=== PATIENT | female | born 1955 | race Caucasian/White ===

== ENCOUNTER 2017-03-12 06:23 | Inpatient (IN) ==
--- NOTE | 2017-03-12 06:58 | Emergency Department Note ---
START Narrative - START START: 61-year-old female presents to the emergency department with concerns of elevated blood pressure. Patient states that this happened multiple times in the past when her renal stents have started to thrombose. Patient states her normal blood pressures around 150 systolic, she is noted and elevated throughout the night. She has taken extra doses of her BP medications which include clonidine, Cozaar, hydralazine without improvement of her blood pressure. Patient now complains of mild chest pressure and blurred vision however she denies weakness in her upper or lower extremities different from her baseline. At the end of my shift patient is pending laboratory evaluation, x-ray, reevaluation and disposition. Patient care will be transferred to Dr. Perez for further care and evaluation.
[2017-03-12 07:02] LABS: Calcium 9.6 mg/dL (8.6-10.8); Potassium 3.6 mEq/L (3.5-4.5)
[2017-03-12 07:20] LABS: Bilirubin,Urine Negative (Negative); Blood,Urine Negative (Negative); Clarity,Urine Clear (Clear); Color,Urine Yellow (Yellow); Glucose,Urine (UA) Normal (Normal); Ketones,Urine Negative (Negative); Leukocyte Esterase,Urine Negative (Negative); Nitrite,Urine Negative (Negative); PH,Urine 6.5 pH Units (5.0-8.0); Protein,Urine Negative (Neg-Trace); Specific Gravity,Urine 1.007 (1.010-1.025); Urobilinogen,Urine Normal (Normal)
--- NOTE | 2017-03-12 07:26 | Emergency Department Note ---
Disposition Clinical Impression: Accelerated essential hypertension CKD (chronic kidney disease) Qualifiers: Chronic kidney disease stage: unspecified stage Qualified Code(s): N18.9 - Chronic kidney disease, unspecified Disposition: Admitted As Inpatient Condition: Fair Time of Disposition: 10:50 General Adult HPI - General Chief complaint: ED Chest Pain Stated complaint: high BP Time Seen by Provider: 03/12/17 07:13 Source: patient Limitations: no limitations Nursing Notes Reviewed: Yes Vital Signs Reviewed: Yes - History of Present Illness HPI Narrative: Mrs. Gambino, a 61-year-old female, presents from home for evaluation of hypertension. Overnight, patient's blood pressure continued to steadily rise. Now associated with headache, blurry vision, intermittent chest heaviness. Patient she was also having intermittent symptoms consistent with her trigeminy and bigeminy. She has a history of bilateral renal stents followed by Dr. Nassar. 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 Corado. Overnight, patient was taking one of her BP meds every 3 hours, cycling through clonidine, Cozaar, and hydralazine; BP did not come down at home. She has been compliant with regular self dosing of her clonidine, Cozaar , hydralazine. Her blood pressure continued to rise despite this. Patient notes that this happened previously when she had a thrombosed stent in her symptoms are very similar. She notes that approximately every 6 months she has her right renal stent, "Roto -Rootered" and this was not done in September as it was not yet severe enough. Antiplatelet: Aspirin 81, Plavix. 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 ROS: Positive: As above nausea Negative: Fever, chills, vomiting, abdominal pains, constipation, dysuria Pain Scale: 5 - Related Data Home Medications Medication Instructions Recorded Confirmed Albuterol Sulfate [Albuterol 2 puff IH Q4HR PRN 02/15/15 03/12/17 Inhaler] Atorvastatin [Lipitor] 40 mg PO HS 02/15/15 03/12/17 Clopidogrel [Plavix] 75 mg PO HS 02/15/15 03/12/17 Ipratropium/Albuterol Neb [Duoneb] 3 ml IH Q6HR PRN 02/15/15 03/12/17 Levothyroxine [Synthroid] 75 mcg PO DAILY 02/15/15 03/12/17 SUMAtriptan [Imitrex] 50 mg PO Q2H PRN 02/15/15 03/12/17 TraZODone 200 mg PO HS 02/15/15 03/12/17 diazePAM [Valium] 5 mg PO HS 02/15/15 03/12/17 Carvedilol [Coreg] 25 mg PO DAILY 05/09/16 03/12/17 Cetirizine HCl [Zyrtec] 10 mg PO DAILY 05/09/16 03/12/17 Cholecalciferol (Vitamin D3) 1,000 unit PO DAILY 05/09/16 03/12/17 [Vitamin D3] CloNIDine HCl [Kapvay] 0.2 mg PO TID 05/09/16 03/12/17 Oxybutynin Chloride [Ditropan Xl] 10 mg PO DAILY 05/09/16 03/12/17 Desvenlafaxine Succinate [Pristiq] 50 mg PO DAILY 12/10/16 03/12/17 Hydralazine HCl 50 mg PO TID 12/10/16 03/12/17 Ipratropium [place] 2 spr NS BID 12/10/16 03/12/17 Montelukast [Singulair] 10 mg PO DAILY 12/10/16 03/12/17 Aspirin [Lo-Dose Aspirin EC] 81 mg PO DAILY 03/12/17 03/12/17 Previous Rx's Medication Instructions Recorded Acetaminophen [Tylenol] 1,000 mg PO Q6HR PRN #0 tablet 05/09/16 Allergies Allergy/AdvReac Type Severity Reaction Status Date / Time cephalexin [From Keflex] Allergy Severe Swelling Verified 12/10/16 06:19 of Lip/Tongue/Throat Penicillins [PCN] Allergy Severe Swelling Verified 12/10/16 06:19 of Lip/Tongue/Throat sulfamethoxazole Allergy Severe Swelling Verified 12/10/16 06:19 [From Bactrim] of Lip/Tongue/Throat trimethoprim [From Bactrim] Allergy Severe Swelling Verified 12/10/16 06:19 of Lip/Tongue/Throat diphenhydramine Allergy Mild Irritable Verified 12/10/16 06:19 [From Benadryl] gentamicin Allergy See Verified 12/10/16 06:19 Comments Iodinated Contrast- Oral and Allergy See Verified 12/10/16 06:19 IV Dye Comments nitrofurantoin Allergy See Verified 12/10/16 06:19 Comments NSAIDS (Non-Steroidal Allergy See Verified 12/10/16 06:19 Anti-Inflamma Comments vancomycin Allergy See Verified 12/10/16 06:19 Comments All systems ED: reviewed and negative except as stated. 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 HEENT: No facial asymmetry. Head is normocephalic and atraumatic. PERRLA, EOMI. no papilledema on funduscopic exam. Oral mucosa moist. Trachea midline. Cardiovascular: Heart regular rate and rhythm without clicks, rubs, gallops, or murmurs. No JVD. PMI nondisplaced. Respiratory: Symmetric chest rise with good respiratory effort. Bilateral breath sounds are clear without wheezing, crackles, or rhonchi. Abdomen: Bowel sounds present normoactive x-4 quadrants. Abdomen is soft, nondistended, and nontender. No organomegaly noted. Musculoskeletal: Muscle strength 5/5 and symmetric bilaterally in upper extremities. Neuro: Cranial nerves II through XII without deficit. Sensation light touch intact. Psych: Patient's affect is appropriate for situation. - General Limitations: no limitations General appearance: alert, in no apparent distress Course Course Narrative: Patient's BP stable in low 200's. Patient has nausea improved with Zofran. We will provide IV labetalol in an attempt to better control her blood pressures. Bilateral renal ultrasound not concerning for renal artery thrombosis for radiology report. I discussed the patient with the admitting hospitalist, Dr. [place], who agrees to accept the patient for continued evaluation and management of her currently poorly controlled blood pressure. Vital Signs Temperature 97.5 F L 03/12/17 06:26 Pulse Rate 73 03/12/17 06:26 Respiratory Rate 18 03/12/17 06:26 Blood Pressure 227/102 03/12/17 06:26 O2 Sat by Pulse Oximetry 96 03/12/17 06:26 Temperature 98.1 F 03/12/17 15:16 Pulse Rate 75 03/12/17 15:16 Respiratory Rate 18 03/12/17 15:16 Blood Pressure 177/69 03/12/17 15:16 O2 Sat by Pulse Oximetry 91 03/12/17 15:16 Oxygen Delivery Oxygen Delivery Room Air Medical Decision Making - Lab Data Result diagrams: 03/12/17 06:40 Lab Results 03/12/17 03/12/17 03/12/17 Range/Units 06:40 06:40 07:12 Sodium 135 L (136-145) mEq/L Potassium 3.6 (3.5-4.5) mEq/L Chloride 103 (98-109) mEq/L Carbon Dioxide 23 (19-29) mEq/L BUN 22 H (7-20) mg/dL Creatinine 1.52 H (0.57-1.11) mg/dL Est GFR ( Amer) 42 L (> 60) Est GFR (Non-Af Amer) 35 L (> 60) BUN/Creatinine Ratio 14 (6-26) Glucose 108 H (70-99) mg/dL Calculated Osmolality 284 (280-300) Calcium 9.6 (8.6-10.8) mg/dL Magnesium 2.0 (1.6-2.6) mg/dL Troponin I 0.02 (0-0.03) ng/mL Urine Color Yellow (Yellow) Urine Clarity Clear (Clear) Urine pH 6.5 (5.0-8.0) pH Units Ur Specific [place] 1.007 L (1.010-1.025) Urine Protein Negative (Neg-Trace) mg/dL Urine Glucose (UA) Normal (Normal) mg/dL Urine Ketones Negative (Negative) mg/dL Urine Blood Negative (Negative) Urine Nitrite Negative (Negative) Urine Bilirubin Negative (Negative) Urine Urobilinogen Normal (Normal) mg/dL Ur Leukocyte Esterase Negative (Negative) Ur Culture Indicated? NO (NO) - EKG Data EKG #1 EKG attestation: Yes I reviewed and interpreted this EKG. EKG results narrative: EKG dated 11 March 2017 at 06:36 interpreted as sinus rhythm with rate of 67. Normal intervals. 65, QRS 86, QT/QTc 381/396. Normal axis. Nonspecific ST-T changes. Compared to previous dated 04/30/2016 showed no acute ischemic changes of comparison. Attestation Statement - Attestation Attestation: I examined this patient and my medical decision-making was reviewed with the Resident Physician. I agree with the documented findings, disposition and treatment plan as described except to the extent set forth below. Hypertension. Concern for possible flow-limiting lesion in the renal artery. Previous stenting. Plan to admit after antihypertensive regimen for monitoring. No identification of flow-limiting lesion.
[2017-03-12] MEDS ORDERED: Ondansetron 4 MG/2 ML VIAL IVP ONE (08:18)
[2017-03-12] MEDS ORDERED: *HR* Labetalol 20 MG/4 ML SYRINGE IVP ONE (09:50)
--- NOTE | 2017-03-12 14:14 | Electrocardiograph Report ---
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
[2017-03-12] MEDS ORDERED: Ondansetron 4 MG/2 ML VIAL IVP PRN (14:48)
[2017-03-12] MEDS ORDERED: Naloxone 0.4 MG/ML INJ IVP PRN (14:48)
[2017-03-12] MEDS ORDERED: cloNIDine HCl 0.1 MG TABLET PO SCH (15:00)
[2017-03-12] MEDS ORDERED: hydrALAZINE 25 MG TABLET PO SCH (15:00)
--- NOTE | 2017-03-12 15:16 | Internal Med History&Physical ---
Date of Encounter: 03/12/17 Time of Encounter: 15:05 Assessment and Plan (1) Accelerated essential hypertension Current visit: Yes Status: Acute 1 patient has a history of renovascular hypertension-ALLI with stent placement. She has been experiencing over the past 3 days steady increase in her blood pressure she states she has been compliant with her medications. Last night she began to experience chest pressure vision changes and headache. She alternated her clonidine and hydralazine every 3 hours. She was given labetalol in the ER blood pressure is presently down to 148. We will hold all medications for now and resume this evening. 2 continuous cardiac monitoring 3 we will trend troponins 4 neurochecks (2) Chronic kidney disease, stage 3 Current visit: No Status: Chronic 1 creatinine is 1.5 to baseline seems to be between 1.3 1.4. Patient has been experiencing episodes of hypertension which I suspect is contributing to her rising creatinine. We will continue with home medications and continue to trend creatinine 2 we will consult nephrology 3 watch her intake output daily weights 4 avoid nephrotoxins 5 no NSAIDS (3) COPD (chronic obstructive pulmonary disease) Current visit: No Status: Chronic 1 as he appears stable we will continue with bronchodilators and oxygen as needed Qualifiers: COPD type: unspecified COPD Qualified Code(s): J44.9 - Chronic obstructive pulmonary disease, unspecified (4) DVT prophylaxis Current visit: Yes Status: Acute 1 heparin subcutaneous Internal Medicine - H&P: HPI Chief complaint: CP Admitted From: Emergency Dept Plans for Post Hospital Care: Home History of present illness: Ms. Gambino is a 61 year old female past medical history of COPD CAD CVA hyperlipidemia hypertension renal artery stenosis with stents and carotid stenosis status post CEA history of trigeminy/bigeminy. According to the patient over the past few days her blood pressure has been slowly rising. Last night she did experience elevated blood pressure. She was cycling back and forth between hydralazine and clonidine every 3 hours in order to bring down her blood pressure. Her blood pressure continued to rise despite this intervention. She did develop headache blurry vision and intermittent chest heaviness as well as palpitations which she attributes to her trigeminy/ bigeminy. She is concerned because she experienced a similar episode of hypertension when her stent thrombosed She presented to the ER with the above complaints. Cording to ER notes on presentation patient his blood pressure was 227/102 she was complaining of right sided chest pressure which was nonradiating she was given labetalol IV which did improve her blood pressure. EKG did demonstrate a sinus tachycardia with occasional PVCs. Lab work did show a slight elevation in her creatinine as well as some hyponatremia and she has been admitted for further workup and evaluation. Presently patient denies any chest pain or palpitations. She has occasional chest pressure. Her headache has resolved there is no change in her vision. Blood pressure has improved with systolic 148. I did review this case with who agrees with plan. Past Med Surg Social Fam HX - Past Medical History Medical history: asthma, COPD, coronary artery disease, CVA, DVT, hyperlipidemia , hypertension, migraine, renal disease, thyroid disease Psychiatric history: anxiety, depression - Past Surgical History Surgical History: carotid endarterectomy, hysterectomy, other - Social History Smoking Status: Current every day smoker Packs per day: 1/2 Smokeless Tobacco Status: No Alcohol use: none Drug use: none - Family History Father Hx Family Cardiac Disorders: Yes (CAD) Hx Family Endocrine Disorder: Yes (Diabetes) Mother Hx Family Cardiac Disorders: Yes (CAD) Hx Family Endocrine Disorder: Yes (diabetes) Internal Medicine - H&P: Meds Albuterol Sulfate [Albuterol Inhaler] 2 puff IH Q4HR PRN 02/15/15 [History] Atorvastatin [Lipitor] 40 mg PO HS 02/15/15 [History] Clopidogrel [Plavix] 75 mg PO HS 02/15/15 [History] Ipratropium/Albuterol Neb [Duoneb] 3 ml IH Q6HR PRN 02/15/15 [History] Levothyroxine [Synthroid] 75 mcg PO DAILY 02/15/15 [History] SUMAtriptan [Imitrex] 50 mg PO Q2H PRN 02/15/15 [History] TraZODone 200 mg PO HS 02/15/15 [History] diazePAM [Valium] 5 mg PO HS 02/15/15 [History] Acetaminophen [Tylenol] 1,000 mg PO Q6HR PRN #0 tablet 05/09/16 [Rx] Carvedilol [Coreg] 25 mg PO DAILY 05/09/16 [History] Cetirizine HCl [Zyrtec] 10 mg PO DAILY 05/09/16 [History] Cholecalciferol (Vitamin D3) [Vitamin D3] 1,000 unit PO DAILY 05/09/16 [History] CloNIDine HCl [Kapvay] 0.2 mg PO TID 05/09/16 [History] Oxybutynin Chloride [Ditropan Xl] 10 mg PO DAILY 05/09/16 [History] Desvenlafaxine Succinate [Pristiq] 50 mg PO DAILY 12/10/16 [History] Hydralazine HCl 50 mg PO TID 12/10/16 [History] Ipratropium [place] 2 spr NS BID 12/10/16 [History] Montelukast [Singulair] 10 mg PO DAILY 12/10/16 [History] Aspirin [Lo-Dose Aspirin EC] 81 mg PO DAILY 03/12/17 [History] 3 Allergy/AdvReac Type Severity Reaction Status Date / Time cephalexin [From Keflex] Allergy Severe Swelling Verified 12/10/16 06:19 of Lip/Tongue/Throat Penicillins [PCN] Allergy Severe Swelling Verified 12/10/16 06:19 of Lip/Tongue/Throat sulfamethoxazole Allergy Severe Swelling Verified 12/10/16 06:19 [From Bactrim] of Lip/Tongue/Throat trimethoprim [From Bactrim] Allergy Severe Swelling Verified 12/10/16 06:19 of Lip/Tongue/Throat diphenhydramine Allergy Mild Irritable Verified 12/10/16 06:19 [From Benadryl] gentamicin Allergy See Verified 12/10/16 06:19 Comments Iodinated Contrast- Oral and Allergy See Verified 12/10/16 06:19 IV Dye Comments nitrofurantoin Allergy See Verified 12/10/16 06:19 Comments NSAIDS (Non-Steroidal Allergy See Verified 12/10/16 06:19 Anti-Inflamma Comments vancomycin Allergy See Verified 12/10/16 06:19 Comments All Systems PM: A 10-system review of systems was performed and is negative for pertinent findings except as documented above in the HPI. - Constitutional Constitutional: no chills, no fever(s), no night sweats - EENT Eyes: no change in vision, no discharge, no pain, no photophobia Ears: no ear discharge, no ear pain, no tinnitus Nose, mouth and throat: no dysphagia, no nasal discharge, no neck pain, no sore throat - Cardiovascular Cardiovascular ROS IM: chest pain, no diaphoresis, no dyspnea, no lightheadedness, no palpitations, no syncope - Respiratory Respiratory: wheezing, no cough, no dyspnea, no excessive phlegm production - Genitourinary Genitourinary: no change in urinary stream, no dysuria, no flank pain, no hematuria - Musculoskeletal Musculoskeletal ROS IM: no numbness, no tingling - Integumentary Integumentary IM: no rash, no unusual bruising - Neurological Neurological ROS: other visual disturbances, no confusion, no convulsions, no focal weakness, no numbness, no tingling, no tremor(s) - Hematologic/Lymphatic Hematologic/Lymphatic: no easy bruising - Constitutional Vitals: Temp Pulse Resp BP Pulse Ox 98.1 F 66 20 183/79 97 03/12/17 11:01 03/12/17 11:01 03/12/17 11:01 03/12/17 11:01 03/12/17 11:01 General appearance: Present: A&O X 3 - Head Head exam: Present: atraumatic, normocephalic - Eye Eye exam: Present: PERRL, conjuntiva pink, sclera anicteric Pupils: Present: PERRL - Neck Neck exam general surgery: Present: supple, trachea midline. Absent: lymphadenopathy - Respiratory Respiratory exam: Present: CTAB. Absent: accessory muscle use, rales, rhonchi, wheezes - Cardiovascular Cardiovascular exam: Present: RRR, +S1, +S2. Absent: diastolic murmur, gallop, rubs, systolic murmur - GI/Abdominal GI/Abdominal exam: Present: normal bowel sounds, soft, no peritoneal signs. Absent: distended, tenderness - Extremities Exam Extremities exam: Present: warm, radial pulses palpable and symmetrical. Absent : calf tenderness, cyanotic, pedal edema - Neurological Exam Neurological exam: Present: CN II-XII intact, oriented X3, no focal deficits. Absent: pronater drift, facial droop, speech deficit - Skin Skin exam: Present: dry, intact Internal Med - H&P Results - Labs CBC & Chem 7: 03/12/17 06:40 - EKG Data EKG shows normal: sinus rhythm Rate: tachycardia - Diagnostic Studies Chest x-ray Additional comments: Chest X-Ray 03/12/17 06:40 IMPRESSION: Stable chest without acute process. D/ / Michelle Herrera MD / Michelle Herrera MD Interpreting Provider: Michelle Herrera MD Head CT 03/12/17 06:57 IMPRESSION: 1. No acute intracranial abnormality. D/ / Ezekiel Ruth MD / Ezekiel Ruth MD Interpreting Provider: Ezekiel Ruth MD Retroperitoneum Ultrasound 03/12/17 07:13 IMPRESSION: No hydronephrosis Echogenic appearance of the kidneys bilaterally, either technical or due to medical renal disease Right kidney cyst D/ / Carlos Crowley MD / Carlos Crowley MD Interpreting Provider: Carlos Crowley MD
--- NOTE | 2017-03-12 15:17 | Electrocardiograph Report ---
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
--- NOTE | 2017-03-12 17:27 | Nephrology Consult Note ---
Date of Encounter: 03/12/17 Time of Encounter: 17:20 Assessment and Plan (1) Accelerated essential hypertension Status: Acute Rule out thrombosed ALLI stent, will order doppler real arteries to reassess. If needed, with contact vascular surgeon, Dr alejandra Will continue labetalol prn Will resume home BP meds: coreg, hydralazine and clonidine (2) Renal artery stenosis Status: Chronic Will obtain doppler of renal arteries (3) Chronic kidney disease, stage 3 Status: Chronic SCr noted at 1.52, GFR 34 essentially within range of fluctuation Will check urine for proteinuria Will check PTH and vitamin D levels History of Present Illness - Reason for Consult Consult date: 03/12/17 Chronic Kidney Disease, accelerated hypertension Requesting physician: Gayle Aleman - History of Present Illness 61 y o female with PMH of HTN, CAD, COPD, PVD s/p CEA and ALLI s/p stent and stage 3 CKD (follows with Dr Fofana)presenting for hypertensive urgency despite home medications for the past 3 days. She reports worsening BP readings up to 200s systolic despite aletranating clonidine and hydralazine. She reports previous hypertensive urgency episodes were from restenosis of her RA stsnts and feels this might be another episode. She was chest pain free at the time of this eval. SCr noted within range of fluctuation around 1.3-1.5. Past Med Surg Social Fam HX - Past Medical History Medical history: asthma, COPD, coronary artery disease, CVA, DVT, hyperlipidemia , hypertension, migraine, renal disease, thyroid disease Psychiatric history: anxiety, depression - Past Surgical History Surgical History: carotid endarterectomy, hysterectomy, other - Social History Smoking Status: Current every day smoker Packs per day: 1/2 Smokeless Tobacco Status: No Alcohol use: none Drug use: none - Family History Father Hx Family Cardiac Disorders: Yes (CAD) Hx Family Endocrine Disorder: Yes (Diabetes) Mother Hx Family Cardiac Disorders: Yes (CAD) Hx Family Endocrine Disorder: Yes (diabetes) Medications and Allergies Albuterol Sulfate [Albuterol Inhaler] 2 puff IH Q4HR PRN 02/15/15 [History] Atorvastatin [Lipitor] 40 mg PO HS 02/15/15 [History] Clopidogrel [Plavix] 75 mg PO HS 02/15/15 [History] Ipratropium/Albuterol Neb [Duoneb] 3 ml IH Q6HR PRN 02/15/15 [History] Levothyroxine [Synthroid] 75 mcg PO DAILY 02/15/15 [History] SUMAtriptan [Imitrex] 50 mg PO Q2H PRN 02/15/15 [History] TraZODone 200 mg PO HS 02/15/15 [History] diazePAM [Valium] 5 mg PO HS 02/15/15 [History] Acetaminophen [Tylenol] 1,000 mg PO Q6HR PRN #0 tablet 05/09/16 [Rx] Carvedilol [Coreg] 25 mg PO DAILY 05/09/16 [History] Cetirizine HCl [Zyrtec] 10 mg PO DAILY 05/09/16 [History] Cholecalciferol (Vitamin D3) [Vitamin D3] 1,000 unit PO DAILY 05/09/16 [History] CloNIDine HCl [Kapvay] 0.2 mg PO TID 05/09/16 [History] Oxybutynin Chloride [Ditropan Xl] 10 mg PO DAILY 05/09/16 [History] Desvenlafaxine Succinate [Pristiq] 50 mg PO DAILY 12/10/16 [History] Hydralazine HCl 50 mg PO TID 12/10/16 [History] Ipratropium [place] 2 spr NS BID 12/10/16 [History] Montelukast [Singulair] 10 mg PO DAILY 12/10/16 [History] Aspirin [Lo-Dose Aspirin EC] 81 mg PO DAILY 03/12/17 [History] Tamsulosin [Flomax] 0.4 mg PO DAILY #30 cap.er.24h 03/20/17 [Rx] amLODIPine [Norvasc] 10 mg PO DAILY #30 tablet 03/20/17 [Rx] 3 Allergy/AdvReac Type Severity Reaction Status Date / Time cephalexin [From Keflex] Allergy Severe Swelling Verified 12/10/16 06:19 of Lip/Tongue/Throat Penicillins [PCN] Allergy Severe Swelling Verified 12/10/16 06:19 of Lip/Tongue/Throat sulfamethoxazole Allergy Severe Swelling Verified 12/10/16 06:19 [From Bactrim] of Lip/Tongue/Throat trimethoprim [From Bactrim] Allergy Severe Swelling Verified 12/10/16 06:19 of Lip/Tongue/Throat diphenhydramine Allergy Mild Irritable Verified 12/10/16 06:19 [From Benadryl] gentamicin Allergy See Verified 12/10/16 06:19 Comments Iodinated Contrast- Oral and Allergy See Verified 12/10/16 06:19 IV Dye Comments nitrofurantoin Allergy See Verified 12/10/16 06:19 Comments NSAIDS (Non-Steroidal Allergy See Verified 12/10/16 06:19 Anti-Inflamma Comments vancomycin Allergy See Verified 12/10/16 06:19 Comments Review of Systems All Systems: reviewed and no additional remarkable complaints except as stated ( 10 systems reviewed) Exam - Vital Signs Vital signs: Initial Vital Signs Temp Pulse Resp BP Pulse Ox 97.5 F L 73 18 227/102 96 03/12/17 06:26 03/12/17 06:26 03/12/17 06:26 03/12/17 06:26 03/12/17 06:26 Vital Signs - Last 8 Hours Temp Pulse Resp BP Pulse Ox 03/12/17 15:16 98.1 F 75 18 177/69 91 - General Appearance General appearance: well-developed, well-nourished EENT: ATNC, mucous membranes moist Neck: no JVD, supple Respiratory: clear Cardiology: no edema, normal S1, normal S2 Gastrointestinal: no tenderness, no guarding Integumentary: warm and dry Neurologic: no focal deficit Musculoskeletal: no deformities Psychiatric: mood/affect appropriate Results - Lab Results 03/19/17 07:28 03/19/17 07:28 Most recent lab results Calcium 9.6 mg/dL (8.6-10.8) 03/12/17 06:40 Magnesium 2.0 mg/dL (1.6-2.6) 03/12/17 06:40 Consult Discharge Plan - Plan Instructions: Amlodipine (By mouth), Peripheral Vascular Disorders (DC), Chronic Hypertension (DC) Additional Instructions: Follow-up with primary care provider in the next 3-5 days Follow-up with vascular surgery as recommended. Follow up with nephrology Take medications as prescribed - Monitor blood pressure daily Start amlodipine 10 mg daily Referrals: Amber Billings CNP [Primary Care Provider] - 03/22/17 10:20 am Juan Alejandra MD [Partnered Physician] - 04/23/17 2:30 pm Jose Manuel Jenkins MD [Partnered Physician] - 04/24/17 3:15 pm (This is in [place]) Prescriptions: amLODIPine [Norvasc] 10 mg PO DAILY #30 tablet Tamsulosin [Flomax] 0.4 mg PO DAILY #30 cap.er.24h
[2017-03-12] MEDS: *HR* Heparin 5,000 UNIT/ML VIAL SQ SCH (17:32)
[2017-03-12] MEDS ORDERED: *HR* Labetalol 20 MG/4 ML SYRINGE IVP PRN (17:34)
[2017-03-12] MEDS: cloNIDine HCl 0.1 MG TABLET PO SCH (20:18)
[2017-03-12] MEDS: diazePAM 5 MG TABLET PO SCH (20:18)
[2017-03-12] MEDS: hydrALAZINE 25 MG TABLET PO SCH (20:18)
[2017-03-12] MEDS: traZODone 50 MG TABLET PO SCH (20:19)
[2017-03-12] MEDS: IPRATROPIUM BROMIDE 0.03% NS SCH (20:20)
[2017-03-12] MEDS: Acetaminophen 325 MG TABLET PO PRN (20:26)
[2017-03-12 21:06] LABS: Creatinine,Urine 56 mg/dL; Microalbum/Creatinine Ratio,Ur 11 (0-30); Microalbumin,Urine 6 mg/L; Protein/Creatinine Ratio,Urine 0.13 mg/mg (0-0.20)
[2017-03-13 04:42] LABS: Basophils # 0.1 K/mcL (0.0-0.2); Basophils % 0.9 %; Eosinophils # 0.3 K/mcL (0.0-0.6); Eosinophils % 3.9 %; Hematocrit 32.2 % (35.3-44.9); Hemoglobin 10.3 g/dL (11.5-15.4); Immature Granulocytes % 0.1 % (0-4); Lymphocytes % 42.9 %; Mean Corpuscular Hemoglobin 29.4 pg (28.0-33.3); Mean Platelet Volume 9.8 fL (9.4-12.4); Monocytes # 0.6 K/mcL (0.0-1.3); Platelet Count 225 K/mcL (140-400); Red Cell Distribution Width 13.5 % (11.5-14.5); Segmented Neutrophils % 43.2 %
[2017-03-13 05:01] LABS: Calcium 8.7 mg/dL (8.6-10.8); Potassium 4.1 mEq/L (3.5-4.5)
[2017-03-13] MEDS: *HR* Heparin 5,000 UNIT/ML VIAL SQ SCH ×2 (05:54→18:07)
[2017-03-13] MEDS: Cholecalciferol (D-3) 1,000 UNIT TABLET PO SCH (09:44)
[2017-03-13] MEDS: cloNIDine HCl 0.1 MG TABLET PO SCH ×3 (09:44→19:37)
[2017-03-13] MEDS: Venlafaxine XR (24 HR) 75 MG CAP.ER.24H PO SCH (09:44)
[2017-03-13] MEDS: Aspirin Enteric Coated 81 MG Tablet PO SCH (09:44)
[2017-03-13] MEDS: Loratadine 10 MG TABLET PO SCH (09:45)
[2017-03-13] MEDS: hydrALAZINE 25 MG TABLET PO SCH ×3 (09:45→19:37)
[2017-03-13] MEDS: Acetaminophen 325 MG TABLET PO PRN ×2 (09:53→16:07)
[2017-03-13] MEDS: IPRATROPIUM BROMIDE 0.03% NS SCH ×2 (10:13→20:50)
--- NOTE | 2017-03-13 14:11 | Cardiology Consult Note ---
Addendum entered and electronically signed by Cristóbal Keller CNP 03/13/17 14:57: Did not load with Plavix, as pt is already on 75mg daily. Continue. Original Note: <Cristóbal Keller - Last Filed: 03/13/17 14:55> Date of Encounter: 03/13/17 Time of Encounter: 14:06 Assessment and Plan (1) Unstable angina Current Visit: Yes Status: Acute Symptoms concerning for unstable angina--right and left sided chest pain, recently radiation to right shoulder associated with diaphoresis, resolves spontaneously. Does have combined component of musculoskeletal chest pain--left sided tenderness on palpation. No ischemic EKG changes, troponin negative x 4. Pt has multiple risk factors for CAD--HTN, HLD, Pre diabetes, tobacco abuse, family history, vascular disease. Negative stress 08/2015. Echo 07/2015 EF 65%. Recheck echo to reassess EF. Recommend LHC. R/B/A discussed. Pt agrees to proceed. She just ate lunch, unable to do today. With tomorrow being a Holiday, anticipate LHC on Saturday, which will also give time for us to see if kidney function improves/stabilizes. Appreciate nephrology input as well. Continue to follow. Continue ASA, Statin, BB. Discussed with Dr. Muro. Will load with Plavix 300mg today, then start 75mg daily. Pt reports IVP dye allergy--not a true allergy, only listed because of her renal disease. (2) Accelerated essential hypertension Current Visit: Yes Status: Acute Now improved. Renal duplex shows bilateral renal arteries are hemodynamically well maintained. Continue current antihypertensives and adjust as necessary. Discussion w patient/family: The assessment and plan as outlined above was discussed with the patient and/or family members who expressed understanding and agreement. All questions were answered. Thank you for involving us in the care of your patient. Please call with any questions. I will discuss all the above with Dr. Muro and make changes as necessary. History of Present Illness Consult date: 03/13/17 Requesting physician: Margarita Marsh Consult reason: Chest pain Chief complaint: chest pain History of present illness: Ms. Gambino is a 61 year old female with past medical history of COPD, CVA, hyperlipidemia, hypertension, pre-diabetes, stage 3 CKD, renal artery stenosis with stents, and carotid stenosis status post CEA, history of trigeminy/ bigeminy. According to the patient over the past few days her blood pressure has been slowly rising. Prior to admission she was cycling back and forth between hydralazine and clonidine every 3 hours in order to bring down her blood pressure. Her blood pressure continued to rise. She developed intermittent chest heaviness as well as palpitations. She reports intermittent chest pressure and palpitations for years that she attributes to trigeminy/ bigeminy. Recently her chest pain has changed. She began developing sharp left sided chest pain on Saturday that has been intermittent, then yesterday had right sided chest pain radiating to her neck associated with diaphoresis. Reports it is not associated with exertion and resolves spontaneously. Also reports increased fatigue over the past 2 weeks. BP on admission--227/102, now improved 151/66 most recently. Troponins negatuve x 4. Cardiology consulted for further recommendations. Recent cardiac testing: stress test 08/24/2015 was negative for ischemia or infarct. Echocardiogram 07/29/15: LVEF 65%. Normal left ventricular size and systolic function. Normal right ventricular size and function. No significant valvular dysfunction. Estimated RVSP was 28 mmHg. No pulmonary hypertension. The IVC is not dilated. Event monitor- 06/2015 showed normal sinus rhythm. Past Med Surg Social Fam HX - Past Medical History Medical history: asthma, COPD, coronary artery disease, CVA, DVT, hyperlipidemia , hypertension, migraine, renal disease, thyroid disease Psychiatric history: anxiety, depression - Past Surgical History Surgical History: carotid endarterectomy, hysterectomy, other - Social History Smoking Status: Current every day smoker Packs per day: 1/2 Smokeless Tobacco Status: No Alcohol use: none Drug use: none - Family History Father Hx Family Cardiac Disorders: Yes (CAD) Hx Family Endocrine Disorder: Yes (Diabetes) Mother Hx Family Cardiac Disorders: Yes (CAD) Hx Family Endocrine Disorder: Yes (diabetes) Medications and Allergies Albuterol Sulfate [Albuterol Inhaler] 2 puff IH Q4HR PRN 02/15/15 [History] Atorvastatin [Lipitor] 40 mg PO HS 02/15/15 [History] Clopidogrel [Plavix] 75 mg PO HS 02/15/15 [History] Ipratropium/Albuterol Neb [Duoneb] 3 ml IH Q6HR PRN 02/15/15 [History] Levothyroxine [Synthroid] 75 mcg PO DAILY 02/15/15 [History] SUMAtriptan [Imitrex] 50 mg PO Q2H PRN 02/15/15 [History] TraZODone 200 mg PO HS 02/15/15 [History] diazePAM [Valium] 5 mg PO HS 02/15/15 [History] Acetaminophen [Tylenol] 1,000 mg PO Q6HR PRN #0 tablet 05/09/16 [Rx] Carvedilol [Coreg] 25 mg PO DAILY 05/09/16 [History] Cetirizine HCl [Zyrtec] 10 mg PO DAILY 05/09/16 [History] Cholecalciferol (Vitamin D3) [Vitamin D3] 1,000 unit PO DAILY 05/09/16 [History] CloNIDine HCl [Kapvay] 0.2 mg PO TID 05/09/16 [History] Oxybutynin Chloride [Ditropan Xl] 10 mg PO DAILY 05/09/16 [History] Desvenlafaxine Succinate [Pristiq] 50 mg PO DAILY 12/10/16 [History] Hydralazine HCl 50 mg PO TID 12/10/16 [History] Ipratropium [place] 2 spr NS BID 12/10/16 [History] Montelukast [Singulair] 10 mg PO DAILY 12/10/16 [History] Aspirin [Lo-Dose Aspirin EC] 81 mg PO DAILY 03/12/17 [History] 3 Allergy/AdvReac Type Severity Reaction Status Date / Time cephalexin [From Keflex] Allergy Severe Swelling Verified 12/10/16 06:19 of Lip/Tongue/Throat Penicillins [PCN] Allergy Severe Swelling Verified 12/10/16 06:19 of Lip/Tongue/Throat sulfamethoxazole Allergy Severe Swelling Verified 12/10/16 06:19 [From Bactrim] of Lip/Tongue/Throat trimethoprim [From Bactrim] Allergy Severe Swelling Verified 12/10/16 06:19 of Lip/Tongue/Throat diphenhydramine Allergy Mild Irritable Verified 12/10/16 06:19 [From Benadryl] gentamicin Allergy See Verified 12/10/16 06:19 Comments Iodinated Contrast- Oral and Allergy See Verified 12/10/16 06:19 IV Dye Comments nitrofurantoin Allergy See Verified 12/10/16 06:19 Comments NSAIDS (Non-Steroidal Allergy See Verified 12/10/16 06:19 Anti-Inflamma Comments vancomycin Allergy See Verified 12/10/16 06:19 Comments All Systems Review: A 10-system review of systems was performed and is negative for pertinent findings except as documented above in the HPI. - Cardiovascular Cardiovascular: as per HPI, chest pain at rest, chest pain with exertion, diaphoresis, radiating jaw, neck or arm pain, palpitations - Respiratory Respiratory: dyspnea Physical Examination Vital Signs, Last 4 Hours Temp Pulse Resp BP Pulse Ox 03/13/17 11:27 98.0 F 66 18 151/66 95 Vital Signs Temp Pulse Resp BP Pulse Ox 03/13/17 11:27 98.0 F 66 18 151/66 95 03/13/17 03:13 97.9 F 104 16 149/75 92 03/12/17 22:59 97.3 F L 66 17 147/68 95 03/12/17 19:34 98.3 F 70 18 164/67 93 03/12/17 15:16 98.1 F 75 18 177/69 91 Intake and Output 03/12/17 03/13/17 03/13/17 23:59 07:59 15:59 Intake Total 400 / 400 240 / 240 Balance 400 / 400 240 / 240 Intake: Oral 400 / 400 240 / 240 Other: Meal Dinner Breakfast Percent of Meal Consumed 90% 100% # Voids 1 1 Weight 63.321 kg Patient Weight 03/13/17 23:59 Weight 63.321 kg General: Conversant, No Apparent Distress HEENT: Atraumatic, Normocephaly, Mucus Membranes Moist Neck: No JVD, Normal carotid pulses Cardiac: Reg Rate and Rhythm, Normal S1 and S2, No Murmur Lungs: Normal Breath Sounds, No Wheeze, Rales, Rhonchi Neuro: Alert and responsive, No focal deficits noted Abdomen: Soft, Non-Tender Skin: No rashes noted on visualized skin Musculoskeletal: Other (chest wall tenderness noted) Extremities: No Clubbing, No Cyanosis, No Edema, Normal Pulses Results 03/13/17 03:45 03/13/17 03:45 Lab Results 03/12/17 03/12/17 03/13/17 15:07 20:56 03:45 WBC Hgb Hct Plt Count Sodium Potassium Chloride Carbon Dioxide BUN Creatinine Glucose Calcium Troponin I 0.01 0.00 0.01 03/13/17 03/13/17 03:45 03:45 WBC 6.9 Hgb 10.3 L Hct 32.2 L Plt Count 225 Sodium 139 Potassium 4.1 Chloride 109 Carbon Dioxide 23 BUN 23 H Creatinine 1.64 H Glucose 101 H Calcium 8.7 Troponin I Short CBC 03/13/17 Range/Units 03:45 WBC 6.9 (4.3-11.1) K/mcL Hgb 10.3 L (11.5-15.4) g/dL Hct 32.2 L (35.3-44.9) % Plt Count 225 (140-400) K/mcL Neutrophils # 3.0 (1.6-8.9) K/mcL BMP 03/13/17 03/12/17 Range/Units 03:45 06:40 Sodium 139 135 L (136-145) mEq/L Potassium 4.1 3.6 (3.5-4.5) mEq/L Chloride 109 103 (98-109) mEq/L Carbon Dioxide 23 23 (19-29) mEq/L BUN 23 H 22 H (7-20) mg/dL Creatinine 1.64 H 1.52 H (0.57-1.11) mg/dL Glucose 101 H 108 H (70-99) mg/dL Calcium 8.7 9.6 (8.6-10.8) mg/dL Cardiac Enzymes 03/13/17 03/12/17 03/12/17 Range/Units 03:45 20:56 15:07 Troponin I 0.01 0.00 0.01 (0-0.03) ng/mL Active Medications Acetaminophen (Tylenol) 650 mg PO Q6HR PRN PRN Reason: Mild Pain (1-3) Stop: 09/11/17 14:49 Last Admin: 03/13/17 09:53 Dose: 650 mg Albuterol Sulfate (Albuterol Inhaler) 2 puff IH Q4HR PRN PRN Reason: Dyspnea Stop: 09/11/17 14:53 Aspirin (Aspirin Ec) 81 mg PO DAILY [facility] Stop: 09/12/17 09:01 Last Admin: 03/13/17 09:44 Dose: 81 mg Atorvastatin Calcium (Lipitor) 40 mg PO HS [facility] Stop: 09/11/17 21:01 Last Admin: 03/12/17 20:18 Dose: 40 mg Carvedilol (Coreg) 25 mg PO DAILY [facility] PRN Reason: Protocol Stop: 09/12/17 09:01 Last Admin: 03/13/17 09:44 Dose: 25 mg Clonidine HCl (Clonidine Hcl) 0.2 mg PO TID [facility] Stop: 09/11/17 21:01 Last Admin: 03/13/17 09:44 Dose: 0.2 mg Clopidogrel Bisulfate (Plavix) 75 mg PO HS [facility] Stop: 09/11/17 21:01 Last Admin: 03/12/17 20:18 Dose: 75 mg Diazepam (Valium) 5 mg PO HS [facility] Stop: 09/11/17 21:01 Last Admin: 03/12/17 20:18 Dose: 5 mg Heparin Sodium (Porcine) (Heparin) 5,000 unit SQ Q12HR [facility] Stop: 09/11/17 18:01 Last Admin: 03/13/17 05:54 Dose: 5,000 unit Hydralazine HCl (Hydralazine) 50 mg PO TID [facility] Stop: 09/11/17 21:01 Last Admin: 03/13/17 09:45 Dose: 50 mg Labetalol HCl (Labetalol) 10 mg IVP Q1H PRN PRN Reason: Blood Pressure - High Stop: 09/11/17 17:35 Levothyroxine Sodium (Synthroid) 75 mcg PO 0630 [facility] Stop: 09/12/17 06:31 Last Admin: 03/13/17 09:44 Dose: 75 mcg Loratadine (Claritin) 10 mg PO DAILY [facility] Stop: 09/12/17 09:01 Last Admin: 03/13/17 09:45 Dose: 10 mg Montelukast Sodium (Singulair) 10 mg PO DAILY [facility] Stop: 09/12/17 09:01 Last Admin: 03/13/17 09:45 Dose: 10 mg Naloxone HCl (Narcan) 0.4 mg IVP Q2MIN PRN PRN Reason: Opioid Reversal Stop: 09/11/17 14:49 Ondansetron HCl (Zofran) 4 mg IVP Q8HR PRN PRN Reason: Nausea And Vomiting Stop: 09/11/17 14:49 Oxybutynin Chloride (Ditropan) 5 mg PO BID [facility] Stop: 09/12/17 09:01 Last Admin: 03/13/17 09:45 Dose: 5 mg Pharmacy Profile Note (Patient Taking Own Medication) 2 each NS BID [facility] Stop: 09/11/17 21:01 Last Admin: 03/13/17 10:13 Dose: Not Given Trazodone HCl (Trazodone) 200 mg PO HS [facility] Stop: 09/11/17 21:01 Last Admin: 03/12/17 20:19 Dose: 200 mg Venlafaxine HCl (Effexor Xr) 75 mg PO DAILY [facility] Stop: 09/12/17 09:01 Last Admin: 03/13/17 09:44 Dose: 75 mg Vitamin D (Vitamin D) 1,000 unit PO DAILY [facility] Stop: 09/12/17 09:01 Last Admin: 03/13/17 09:44 Dose: 1,000 unit - Imaging and Cardiology Stress Test: report reviewed Echo: report reviewed - EKG Interpretation EKG results cardiology: personally reviewed (SR, poor R wave progression) Consult Discharge Plan - Plan Referrals: Amber Billings, [employer] [Primary Care Provider] - 03/18/17 1:40 pm <Joss Muro - Last Filed: 03/13/17 18:12> Date of Encounter: 03/13/17 - Attending Attestation I have personally performed a face to face evaluation on this patient. I have reviewed and agree with the care plan. History and Exam by me shows: 1. Chest pain - pt has new right sided chest pain, which radiates into right neck, associated with diaphoresis, consistent with anginal etiology. Pt also has new onset epigastric pain associated with right chest pain, described as "horrible indigestion", Long conversation about evaluation and management, recommend LHC/poss in light of previous normal stress studies with continued symptoms, now with more diffuse chest pain pattern. Pt understands and accepts risks and benefits, elects to proceed with LHC/poss Saturday. Will maximize renal protection in interim. 2. Musculoskeletal chest pain, left medial upper quad left breast, consistent with costrochondritis, recommend local topical warm compress and better bra support. 3. PVD - bilat ALLI with stents biltat, recurrent restenosis right renal artery, post multiple PTAs (q 6 months) 4. hypertension - adequate blood pressure control on current meds. Assessment and Plan Discussion w patient/family: The assessment and plan as outlined above was discussed with the patient and/or family members who expressed understanding and agreement. All questions were answered. Thank you for involving us in the care of your patient. Please call with any questions. History of Present Illness History of present illness: Ms. Gambino is a 61 year old female All Systems Review: A 10-system review of systems was performed and is negative for pertinent findings except as documented above in the HPI. Physical Examination Vital Signs, Last 4 Hours Temp Pulse Resp BP Pulse Ox 03/13/17 15:43 98.1 F 68 16 174/70 96 Results 03/13/17 03:45 03/13/17 03:45 Lab Results 03/12/17 03/13/17 03/13/17 20:56 03:45 03:45 WBC 6.9 Hgb 10.3 L Hct 32.2 L Plt Count 225 Sodium Potassium Chloride Carbon Dioxide BUN Creatinine Glucose Calcium Troponin I 0.00 0.01 03/13/17 03:45 WBC Hgb Hct Plt Count Sodium 139 Potassium 4.1 Chloride 109 Carbon Dioxide 23 BUN 23 H Creatinine 1.64 H Glucose 101 H Calcium 8.7 Troponin I
--- NOTE | 2017-03-13 15:47 | Internal Med Progress Note ---
Date of Encounter: 03/13/17 Time of Encounter: 15:41 - Assessment and plan (1) Chest pain Current Visit: Yes Status: Acute Assessment and plan: Rena Gambino is a 51-year-old female with past medical history renal artery stenosis, chronic kidney disease and hypertension who presented to [facility] on 02/20/2017 with complaints of chest pain. She observation status for further workup and treatment. 1. Chest pain: Patient reported right-sided chest pain sharp in nature that radiated to her jaw. No known CAD. Risk factors include smoker, hypertension and family history. Serial troponins negative. EKG without acute ST changes. Cardiology consult and planning on [facility] 03/16/2017. Cont ASA, plavix, statin 2. Renal artery stenosis: per hx. Rule out thrombosed ALIL stent, will order doppler real arteries to reassess. If needed, with contact vascular surgeon, Dr alejandra. 3. Hypertension: Resume home BP meds: coreg, hydralazine and clondine. PRN hydralazine 4. CKD: per hx. Stable. Nephrology following 5. DVT prophylaxis: Heparin Qualifiers: Chest pain type: unspecified Qualified Code(s): R07.9 - Chest pain, unspecified (2) Accelerated essential hypertension Current Visit: Yes Status: Acute (3) Chronic kidney disease, stage 3 Current Visit: No Status: Chronic (4) Renal artery stenosis Current Visit: No Status: Acute - Subjective Interval history: Dear examined at bedside. Information obtained from chart review and patient report. Patient says she is feeling better now. No chest pain at this time. She reports an episode of right-sided chest pain that was sharp in nature, radiated to right jaw day of presentation. Chest pain resolved spontaneously. No chest pain, no shortness of breath this time. - Constitutional Vitals: Temp Pulse Resp BP Pulse Ox 98.0 F 66 18 151/66 95 03/13/17 11:27 03/13/17 11:27 03/13/17 11:27 03/13/17 11:27 03/13/17 11:27 General appearance: Present: A&O X 3 - Head Head exam: Present: atraumatic, normocephalic - Eye Eye exam: Present: PERRL, conjuntiva pink, sclera anicteric Pupils: Present: PERRL - Neck Neck exam general surgery: Present: supple, trachea midline. Absent: lymphadenopathy - Respiratory Respiratory exam: Present: CTAB. Absent: accessory muscle use, rales, rhonchi, wheezes - Cardiovascular Cardiovascular exam: Present: RRR, +S1, +S2. Absent: diastolic murmur, gallop, rubs, systolic murmur - GI/Abdominal GI/Abdominal exam: Present: normal bowel sounds, soft, no peritoneal signs. Absent: distended, tenderness - Extremities Exam Extremities exam: Present: warm, radial pulses palpable and symmetrical. Absent : calf tenderness, cyanotic, pedal edema - Neurological Exam Neurological exam: Present: CN II-XII intact, oriented X3, no focal deficits. Absent: pronater drift, facial droop, speech deficit - Skin Skin exam: Present: dry, intact Internal Medicine: Result - Labs CBC & Chem 7: 03/13/17 03:45 03/13/17 03:45 Labs: Short CBC 03/13/17 Range/Units 03:45 WBC 6.9 (4.3-11.1) K/mcL Hgb 10.3 L (11.5-15.4) g/dL Hct 32.2 L (35.3-44.9) % Plt Count 225 (140-400) K/mcL Neutrophils # 3.0 (1.6-8.9) K/mcL BMP 03/13/17 03:45 Sodium 139 Potassium 4.1 Chloride 109 Carbon Dioxide 23 BUN 23 H Creatinine 1.64 H Glucose 101 H Calcium 8.7 Cardiac Enzymes 03/12/17 03/13/17 Range/Units 20:56 03:45 Troponin I 0.00 0.01 (0-0.03) ng/mL Consult Discharge Plan - Plan Referrals: Amber Billings CNP [Primary Care Provider] - 03/18/17 1:40 pm
--- NOTE | 2017-03-13 16:23 | Nephrology Progress Note ---
Date of Encounter: 03/13/17 - Assessment and Plan (1) Accelerated essential hypertension Current Visit: Yes Status: Acute (2) Renal artery stenosis Current Visit: No Status: Acute (3) Chronic kidney disease, stage 3 Current Visit: No Status: Chronic Objective - Vital Signs Vital signs: Vital Signs Temp Pulse Resp BP Pulse Ox 03/13/17 15:43 98.1 F 68 16 174/70 96 03/13/17 11:27 98.0 F 66 18 151/66 95 03/13/17 03:13 97.9 F 104 16 149/75 92 03/12/17 22:59 97.3 F L 66 17 147/68 95 03/12/17 19:34 98.3 F 70 18 164/67 93 Intake and Output 03/13/17 03/13/17 03/13/17 07:59 15:59 23:59 Intake Total 240 / 240 Balance 240 / 240 Intake: Oral 240 / 240 Other: Meal Breakfast Percent of Meal Consumed 100% # Voids 1 1 Weight 63.321 kg Patient Weight 03/13/17 23:59 Weight 63.321 kg - Lab 03/13/17 03:45 03/13/17 03:45 Most recent lab results Calcium 8.7 mg/dL (8.6-10.8) 03/13/17 03:45 Magnesium 2.0 mg/dL (1.6-2.6) 03/12/17 06:40 Urine Creatinine 56 mg/dL 03/12/17 20:10 Urine Total Protein < 7 mg/dL (1-14) 03/12/17 20:10 Consult Discharge Plan - Plan Referrals: Amber Billings CNP [Primary Care Provider] - 03/18/17 1:40 pm
[2017-03-13] MEDS: traZODone 50 MG TABLET PO SCH (19:38)
[2017-03-13] MEDS: diazePAM 5 MG TABLET PO SCH (19:38)
[2017-03-14] MEDS: *HR* Heparin 5,000 UNIT/ML VIAL SQ SCH ×2 (05:34→17:59)
--- NOTE | 2017-03-14 08:24 | Cardiology Progress Note ---
Date of Encounter: 03/14/17 Time of Encounter: 08:20 Assessment and Plan (1) Accelerated essential hypertension Current Visit: Yes Status: Acute Per Cardiology: Renal duplex shows bilateral renal arteries are hemodynamically well maintained. SBP 170's. Will add norvasc 5mg PO daily. On BB, but Hr in 50's. (2) Chest pain Current Visit: Yes Status: Acute Per Cardiology: Symptoms concerning for unstable angina--right and left sided chest pain, recently radiation to right shoulder associated with diaphoresis, resolves spontaneously. Does have combined component of musculoskeletal chest pain--left sided tenderness on palpation. No ischemic EKG changes, troponin negative x 4. Pt has multiple risk factors for CAD--HTN, HLD, Pre diabetes, tobacco abuse, family history, vascular disease. Negative stress 08/2015. Echo 07/2015 EF 65%. Current echo pending. Possible LHC 03/15. On ASA, Statin, BB, Plavix-- had load. Pt reports IVP dye allergy--not a true allergy, only listed because of her renal disease. Qualifiers: Chest pain type: unspecified Qualified Code(s): R07.9 - Chest pain, unspecified (3) CKD (chronic kidney disease) Current Visit: Yes Status: Chronic Per Cardiology: Known CKD, nephrology following. Possible LHC in am. Will check BMP in am. Qualifiers: Chronic kidney disease stage: unspecified stage Qualified Code(s): N18.9 - Chronic kidney disease, unspecified Discussion w patient/family: The assessment and plan as outlined above was discussed with the patient who expressed understanding and agreement. All questions were answered. Thank you for involving us in the care of your patient. Please call with any questions. Subjective Principal diagnosis: CP Interval history: Patient reports continued left chest wall pressure/discomfort that has been now gone going for years. No changes overnight. Denies any shortness of breath or palpitations. Objective Vital Signs, Last 4 Hours Temp Pulse Resp BP Pulse Ox 03/14/17 07:36 97.8 F 59 19 175/71 95 General: Conversant, No Apparent Distress HEENT: Atraumatic, Normocephaly, Mucus Membranes Moist Neck: No JVD, Normal carotid pulses Cardiac: Reg Rate and Rhythm, Normal S1 and S2, No Murmur Lungs: Normal Breath Sounds, No Wheeze, Rales, Rhonchi Neuro: Alert and responsive, No focal deficits noted Abdomen: Soft, Non-Tender Skin: No rashes noted on visualized skin Musculoskeletal: No Chest Wall Tenderness Extremities: No Clubbing, No Cyanosis, No Edema, Normal Pulses Results 03/13/17 03:45 03/13/17 03:45 Laboratory Tests 11/07/16 11/15/16 11/20/16 08:40 10:52 09:30 Hgb 10.6 L 11.9 Creatinine 2.13 H Troponin I 12/09/16 12/09/16 03/12/17 11:58 11:58 06:40 Hgb 9.7 L Creatinine 1.36 H 1.52 H Troponin I 03/12/17 03/12/17 03/12/17 06:40 15:07 20:56 Hgb Creatinine Troponin I 0.02 0.01 0.00 03/13/17 03/13/17 03/13/17 03:45 03:45 03:45 Hgb 10.3 L Creatinine 1.64 H Troponin I 0.01 ITS Impressions Chest X-Ray 03/12/17 06:40 IMPRESSION: Stable chest without acute process. D/ / Michelle Herrera MD / Michelle Herrera MD Interpreting Provider: Michelle Herrera MD Head CT 03/12/17 06:57 IMPRESSION: 1. No acute intracranial abnormality. D/ / Ezekiel Ruth MD / Ezekiel Ruth MD Interpreting Provider: Ezekiel Ruth MD Retroperitoneum Ultrasound 03/12/17 07:13 IMPRESSION: No hydronephrosis Echogenic appearance of the kidneys bilaterally, either technical or due to medical renal disease Right kidney cyst D/ / Carlos Crowley MD / Carlos Crowley MD Interpreting Provider: Carlos Crowley MD Active Medications Acetaminophen (Tylenol) 650 mg PO Q6HR PRN PRN Reason: Mild Pain (1-3) Stop: 09/11/17 14:49 Last Admin: 03/13/17 16:07 Dose: 650 mg Albuterol Sulfate (Albuterol Inhaler) 2 puff IH Q4HR PRN PRN Reason: Dyspnea Stop: 09/11/17 14:53 Amlodipine Besylate (Norvasc) 5 mg PO DAILY [facility] PRN Reason: Protocol Stop: 09/13/17 09:01 Aspirin (Aspirin Ec) 81 mg PO DAILY [facility] Stop: 09/12/17 09:01 Last Admin: 03/13/17 09:44 Dose: 81 mg Atorvastatin Calcium (Lipitor) 40 mg PO HS [facility] Stop: 09/11/17 21:01 Last Admin: 03/13/17 19:38 Dose: 40 mg Carvedilol (Coreg) 25 mg PO BID [facility] PRN Reason: Protocol Stop: 09/12/17 21:01 Last Admin: 03/13/17 19:38 Dose: 25 mg Clonidine HCl (Clonidine Hcl) 0.2 mg PO TID [facility] Stop: 09/11/17 21:01 Last Admin: 03/13/17 19:37 Dose: 0.2 mg Clopidogrel Bisulfate (Plavix) 75 mg PO HS [facility] Stop: 09/11/17 21:01 Last Admin: 03/13/17 19:36 Dose: 75 mg Diazepam (Valium) 5 mg PO HS [facility] Stop: 09/11/17 21:01 Last Admin: 03/13/17 19:38 Dose: 5 mg Heparin Sodium (Porcine) (Heparin) 5,000 unit SQ Q12HR [facility] Stop: 09/11/17 18:01 Last Admin: 03/14/17 05:34 Dose: 5,000 unit Hydralazine HCl (Hydralazine) 50 mg PO TID [facility] Stop: 09/11/17 21:01 Last Admin: 03/13/17 19:37 Dose: 50 mg Labetalol HCl (Labetalol) 10 mg IVP Q1H PRN PRN Reason: Blood Pressure - High Stop: 09/11/17 17:35 Levothyroxine Sodium (Synthroid) 75 mcg PO 0630 [facility] Stop: 09/12/17 06:31 Last Admin: 03/14/17 05:35 Dose: 75 mcg Loratadine (Claritin) 10 mg PO DAILY [facility] Stop: 09/12/17 09:01 Last Admin: 03/13/17 09:45 Dose: 10 mg Montelukast Sodium (Singulair) 10 mg PO DAILY [facility] Stop: 09/12/17 09:01 Last Admin: 03/13/17 09:45 Dose: 10 mg Naloxone HCl (Narcan) 0.4 mg IVP Q2MIN PRN PRN Reason: Opioid Reversal Stop: 09/11/17 14:49 Ondansetron HCl (Zofran) 4 mg IVP Q8HR PRN PRN Reason: Nausea And Vomiting Stop: 09/11/17 14:49 Oxybutynin Chloride (Ditropan) 5 mg PO BID [facility] Stop: 09/12/17 09:01 Last Admin: 03/13/17 19:38 Dose: 5 mg Pharmacy Profile Note (Patient Taking Own Medication) 2 each NS BID [facility] Stop: 09/11/17 21:01 Last Admin: 03/13/17 20:50 Dose: Not Given Sumatriptan Succinate (Imitrex) 50 mg PO Q2H PRN PRN Reason: Migraine Headache Stop: 09/12/17 17:15 Trazodone HCl (Trazodone) 200 mg PO HS [facility] Stop: 09/11/17 21:01 Last Admin: 03/13/17 19:38 Dose: 200 mg Venlafaxine HCl (Effexor Xr) 75 mg PO DAILY [facility] Stop: 09/12/17 09:01 Last Admin: 03/13/17 09:44 Dose: 75 mg Vitamin D (Vitamin D) 1,000 unit PO DAILY [facility] Stop: 09/12/17 09:01 Last Admin: 03/13/17 09:44 Dose: 1,000 unit - Imaging and Cardiology Cardiac cath: pending - EKG Interpretation EKG results cardiology: other (SB-SR 50's 60's on tele) Consult Discharge Plan - Plan Referrals: Amber Billings, [facility] [Primary Care Provider] - 03/18/17 1:40 pm
[2017-03-14] MEDS: amLODIPine 5 MG TABLET PO SCH (09:41)
[2017-03-14] MEDS: Loratadine 10 MG TABLET PO SCH (09:41)
[2017-03-14] MEDS: cloNIDine HCl 0.1 MG TABLET PO SCH ×3 (09:41→21:18)
[2017-03-14] MEDS: Venlafaxine XR (24 HR) 75 MG CAP.ER.24H PO SCH (09:42)
[2017-03-14] MEDS: Cholecalciferol (D-3) 1,000 UNIT TABLET PO SCH (09:42)
[2017-03-14] MEDS: IPRATROPIUM BROMIDE 0.03% NS SCH (09:42)
[2017-03-14] MEDS: hydrALAZINE 25 MG TABLET PO SCH ×3 (09:42→21:19)
[2017-03-14] MEDS: Aspirin Enteric Coated 81 MG Tablet PO SCH (09:42)
[2017-03-14 14:34] LABS: Hematocrit 33.1 % (35.3-44.9); Mean Corpuscular HGB Conc 33.2 g/dL (31.6-35.5); Mean Corpuscular Hemoglobin 30.1 pg (28.0-33.3); Mean Corpuscular Volume 90.7 fL (83.0-100.0); Mean Platelet Volume 9.9 fL (9.4-12.4); Platelet Count 218 K/mcL (140-400); Red Blood Count 3.65 M/mcL (3.82-4.97); Red Cell Distribution Width 13.2 % (11.5-14.5)
[2017-03-14 14:47] LABS: Potassium 4.4 mEq/L (3.5-4.5)
--- NOTE | 2017-03-14 14:58 | Internal Med Progress Note ---
Date of Encounter: 03/14/17 Time of Encounter: 14:52 - Assessment and plan (1) Chest pain Current Visit: Yes Status: Acute Assessment and plan: Rena Gambino is a 51-year-old female with past medical history renal artery stenosis, chronic kidney disease and hypertension who presented to [facility] on 02/20/2017 with complaints of chest pain. She observation status for further workup and treatment. 1. Chest pain: Patient reported right-sided chest pain sharp in nature that radiated to her jaw. No known CAD. Risk factors include smoker, hypertension and family history. Serial troponins negative. EKG without acute ST changes. Cardiology planning [facility] 03/16/2017. Cont ASA, plavix, statin 2. Renal artery stenosis: per hx. Rule out thrombosed ALLI stent. Renal artery duplex unremarkable. Patient reports requiring stent thrombosis approximately every 6 months and requires intervention. Was last seen 09/2016 and no intervention needed at that time. Consult Dr. Campos as stent could be thrombosed with persistently elevated BP. 3. Hypertension: Resume home BP meds: coreg, hydralazine and clondine. PRN hydralazine 4. CKD: per hx. Stable. Nephrology following 5. DVT prophylaxis: Heparin Qualifiers: Chest pain type: unspecified Qualified Code(s): R07.9 - Chest pain, unspecified (2) Accelerated essential hypertension Current Visit: Yes Status: Acute (3) Chronic kidney disease, stage 3 Current Visit: No Status: Chronic (4) Renal artery stenosis Current Visit: No Status: Acute - Subjective Interval history: Seen and examined at bedside, says she feels better, no chest pain, no SOB. She is aware of need to be NPO at midnight and stress test planned for tomorrow - Constitutional Vitals: Temp Pulse Resp BP Pulse Ox 97.8 F 70 20 138/62 100 03/14/17 11:07 03/14/17 11:07 03/14/17 11:07 03/14/17 11:07 03/14/17 11:07 General appearance: Present: A&O X 3 - Head Head exam: Present: atraumatic, normocephalic - Eye Eye exam: Present: PERRL, conjuntiva pink, sclera anicteric Pupils: Present: PERRL - Neck Neck exam general surgery: Present: supple, trachea midline. Absent: lymphadenopathy - Respiratory Respiratory exam: Present: CTAB. Absent: accessory muscle use, rales, rhonchi, wheezes - Cardiovascular Cardiovascular exam: Present: RRR, +S1, +S2. Absent: diastolic murmur, gallop, rubs, systolic murmur - GI/Abdominal GI/Abdominal exam: Present: normal bowel sounds, soft, no peritoneal signs. Absent: distended, tenderness - Extremities Exam Extremities exam: Present: warm, radial pulses palpable and symmetrical. Absent : calf tenderness, cyanotic, pedal edema - Neurological Exam Neurological exam: Present: CN II-XII intact, oriented X3, no focal deficits. Absent: pronater drift, facial droop, speech deficit - Skin Skin exam: Present: dry, intact Internal Medicine: Result - Labs CBC & Chem 7: 03/14/17 14:20 03/14/17 14:20 Labs: Short CBC 03/14/17 Range/Units 14:20 WBC 8.1 (4.3-11.1) K/mcL Hgb 11.0 L (11.5-15.4) g/dL Hct 33.1 L (35.3-44.9) % Plt Count 218 (140-400) K/mcL BMP 03/14/17 14:20 Sodium 139 Potassium 4.4 Chloride 108 Carbon Dioxide 24 BUN 26 H Creatinine 1.39 H Glucose 131 H Calcium 9.0 - Impressions Impressions Echocardiogram 03/13/17 14:56 Impressions: LVEF 60-65%. Normal LV chamber size and function. Mild concentric left ventricular hypertrophy. Moderate left ventricular diastolic dysfunction. Normal right ventricular structure and function. No evidence of a PFO with agitated saline contrast. Mild pulmonary hypertension. No significant valvular dysfunction. Left Ventricular Wall Motion: Rest Echo Findings All wall segments showed normal motion. Findings: Study Quality * Technically adequate exam. ECG Findings * Normal sinus rhythm. Left Ventricle * LVEF 60-65%. * Normal LV chamber size and function. * Mild concentric left ventricular hypertrophy. * Moderate left ventricular diastolic dysfunction. Right Ventricle * Normal right ventricular structure and function. Left Atrium * Mildly dilated left atrium. Right Atrium * Normal right atrial size. Interatrial Septum * No evidence of a PFO with agitated saline contrast. Aortic Valve * Trileaflet aortic valve with normal function. * No aortic regurgitation. * No aortic stenosis. Mitral Valve * Normal mitral valve structure and function. * No mitral stenosis. * Trace mitral regurgitation. Tricuspid Valve * Normal tricuspid valve structure and function. * Trace tricuspid regurgitation. * Mild pulmonary hypertension. Pulmonic Valve * Normal pulmonic valve structure and function. * No pulmonic regurgitation. Aorta * Normally sized aortic root. Pericardium * The pericardium appears normal. IVC * Normal IVC dimensions and inspiratory collapse. Pulmonary Artery * Normal visualized portions of the main pulmonary artery. Consult Discharge Plan - Plan Referrals: Amber Billings CNP [Primary Care Provider] - 03/18/17 1:40 pm
--- NOTE | 2017-03-14 15:44 | Nephrology Progress Note ---
Date of Encounter: 03/14/17 - Assessment and Plan (1) Accelerated essential hypertension Current Visit: Yes Status: Acute (2) Renal artery stenosis Current Visit: No Status: Acute (3) Chronic kidney disease, stage 3 Current Visit: No Status: Chronic Subjective Principal diagnosis: CP Objective - Vital Signs Vital signs: Vital Signs Temp Pulse Resp BP Pulse Ox 03/14/17 15:19 98.2 F 50 16 162/68 96 03/14/17 11:07 97.8 F 70 20 138/62 100 03/14/17 07:36 97.8 F 59 19 175/71 95 03/14/17 03:54 97.6 F 53 14 172/64 97 03/13/17 23:58 97.4 F L 59 14 156/61 97 03/13/17 19:23 98.1 F 82 14 174/76 98 Intake and Output 03/13/17 03/14/17 03/14/17 23:59 07:59 15:59 Intake Total 500 / 500 Balance 500 / 500 Intake: Oral 500 / 500 Other: # Voids 1 1 Weight 62.227 kg Patient Weight 03/14/17 23:59 Weight 62.227 kg - Lab 03/14/17 14:20 03/14/17 14:20 Most recent lab results Calcium 9.0 mg/dL (8.6-10.8) 03/14/17 14:20 Magnesium 2.0 mg/dL (1.6-2.6) 03/12/17 06:40 Urine Creatinine 56 mg/dL 03/12/17 20:10 Urine Total Protein < 7 mg/dL (1-14) 03/12/17 20:10 Consult Discharge Plan - Plan Referrals: Amber Billings CNP [Primary Care Provider] - 03/18/17 1:40 pm
[2017-03-14] MEDS: SUMAtriptan succinate 50 MG TABLET PO PRN (15:58)
[2017-03-14] MEDS: diazePAM 5 MG TABLET PO SCH (21:19)
[2017-03-14] MEDS: traZODone 50 MG TABLET PO SCH (21:19)
[2017-03-14] MEDS: *HR* Acetylcysteine 20% 600 MG/3 ML ORAL SYRINGE PO SCH (21:19)
[2017-03-15] MEDS: *HR* Heparin 5,000 UNIT/ML VIAL SQ SCH ×2 (05:35→18:06)
--- NOTE | 2017-03-15 06:32 | Event Note ---
Date of Encounter: 03/15/17 Time of Encounter: 06:35 - Cardiology Event Note Laboratory Tests 03/15/17 05:54 Creatinine 1.48 H Est GFR (Non-Af Amer) 36 L Kidney fxn improved. Plan for C today. Patient confirms no true allergy to IVP dye. All questions answered. Patient reports possible renal angiogram per Nephrology-- will discuss with team.
[2017-03-15 06:35] LABS: Calcium 9.4 mg/dL (8.6-10.8); Potassium 4.5 mEq/L (3.5-4.5)
[2017-03-15] MEDS: Acetaminophen 325 MG TABLET PO PRN ×2 (09:06→20:32)
[2017-03-15] MEDS: amLODIPine 5 MG TABLET PO SCH (09:06)
[2017-03-15] MEDS: Aspirin Enteric Coated 81 MG Tablet PO SCH (09:06)
[2017-03-15] MEDS: hydrALAZINE 25 MG TABLET PO SCH ×3 (09:07→20:32)
[2017-03-15] MEDS: Loratadine 10 MG TABLET PO SCH (09:07)
[2017-03-15] MEDS: cloNIDine HCl 0.1 MG TABLET PO SCH ×3 (09:07→20:32)
[2017-03-15] MEDS: Cholecalciferol (D-3) 1,000 UNIT TABLET PO SCH (09:07)
[2017-03-15] MEDS: Venlafaxine XR (24 HR) 75 MG CAP.ER.24H PO SCH (09:07)
[2017-03-15] MEDS: *HR* Acetylcysteine 20% 600 MG/3 ML ORAL SYRINGE PO SCH ×2 (09:14→20:29)
[2017-03-15] MEDS ORDERED: Adenosine 90 MG/30 ML MLS IV ONE (09:21)
[2017-03-15] MEDS ORDERED: Nitroglycerin 1,000 MCG/10 ML VIAL IV ONE (11:27)
[2017-03-15] MEDS ORDERED: *HR* Heparin 10,000 UNIT/10 ML VIAL ONE ×2 (11:27→13:03)
[2017-03-15] MEDS ORDERED: Heparin 1,000 UNITS/500 mL NS 0 ML ONE (11:27)
[2017-03-15] MEDS ORDERED: 0.9 % Sodium Chloride 1,000 ML ONE ×2 (11:27→11:46)
--- NOTE | 2017-03-15 11:33 | Pre-Sedation Evaluation ---
Pre-sedation evaluation - Pre-sedation checklist Date of procedure: 03/15/17 Procedure: RENAL ANGIOGRAM/left heart cath Recent Vitals: Last Vital Signs Temp 97.2 F L 03/15/17 10:52 Pulse 51 03/15/17 10:52 Resp 16 03/15/17 10:52 BP 161/62 03/15/17 10:52 Pulse Ox 96 03/15/17 10:52 H&P (including ROS) documented in medical record: Yes Previous reaction to sedatives/anesthetics: No Dietary Status: NPO after Midnight Dentition: No loose teeth or bridges ASA Classification *see protocol: CLASS II-Mild systemic disease Plan of Care: Pt appropriate candidate for procedure/moderate/conscious sedation , Risks/benefits of procedure/sedation discussed w/ patient/family
[2017-03-15] MEDS ORDERED: *HR* Midazolam HCl 2 MG/2 ML VIAL ONE (11:45)
[2017-03-15] MEDS ORDERED: *HR* FentaNYL (PF) 100 MCG/2 ML VIAL ONE (11:46)
[2017-03-15] MEDS ORDERED: *HR* Adenosine 6 MG/2 ML VIAL IVP ONE (12:16)
--- NOTE | 2017-03-15 12:37 | Internal Med Progress Note ---
Date of Encounter: 03/15/17 Time of Encounter: 09:35 - Assessment and plan (1) Renal artery stenosis Current Visit: Yes Status: Acute Assessment and plan: Patient with history of stents and bilateral renal arteries due to stenosis of unknown etiology. Patient with persistent hypertension, could be thrombosed. Vascular surgery has been consulted, I appreciate Dr. Mariscal's consultation and recommendations.. Nephrology is also following, again I appreciate Dr. Wen's recommendations and consultation. The patient had renal artery duplex that showed bilateral renal arteries are hemodynamically well maintained. Findings Renal Anatomy: The right kidney size measures 8.3 x 4.1 x 3.9 cm. The left kidney size measures 7.8 x 3.8 x 3.8 cm. Renal Duplex Right RAR: .9 Left RAR: 1.1 Side Vessel PSV EDV RI PI Accel Aorta 90.00 13.00 0.86 Left Proximal Renal Artery 96.00 18.00 0.81 Left Mid Renal Artery 87.00 24.00 0.72 Left Distal Renal Artery 88.00 22.00 0.75 Right Proximal Renal Artery 79.00 28.00 0.65 Right Mid Renal Artery 63.00 24.00 0.62 Right Distal Renal Artery 81.00 33.00 0.59 Updated by Aamir Ferrell MD, FACS on 03/13/2017 1:09:26 PM (2) Chronic kidney disease, stage 3 Current Visit: Yes Status: Chronic Assessment and plan: Serum creatinine is 1.48, GFR 36. This appears to be at patient's baseline. Continue to avoid nephrotoxins and NSAIDs. Nephrology is following. I appreciate the recommendations. (3) Mixed hyperlipidemia Current Visit: No Status: Chronic Assessment and plan: Chronic. Continue home medications. (4) Accelerated essential hypertension Current Visit: Yes Status: Acute Assessment and plan: Blood pressure is better controlled in the inpatient setting, remains mildly hypertensive. Will continue to monitor and adjust accordingly after assessment of renal stenosis. (5) CKD (chronic kidney disease) Current Visit: Yes Status: Chronic Assessment and plan: Renal function appears to be at pt's baseline. Sr Cr 1.48, GFR 36. Continue to avoid nephrotoxins and monitor labs. Nsphrology following. Qualifiers: Chronic kidney disease stage: unspecified stage Qualified Code(s): N18.9 - Chronic kidney disease, unspecified (6) COPD (chronic obstructive pulmonary disease) Current Visit: Yes Status: Chronic Assessment and plan: No acute exacerbation. Continue home medications. Encourage smoking cessation. 02 as needed to maintain sats > 92%. Qualifiers: COPD type: unspecified COPD Qualified Code(s): J44.9 - Chronic obstructive pulmonary disease, unspecified (7) DVT prophylaxis Current Visit: Yes Status: Acute Assessment and plan: Heparin SQ. (8) Chest pain Current Visit: Yes Status: Acute Assessment and plan: Patient reports chest pain history for approximately 2 years. Chest pain continues today. She reports a lengthy history of left-sided chest pain with radiation to the right side this time which was concerning. She did have associated diaphoresis, denies nausea or vomiting or shortness of breath. EKG was normal sinus troponins are negative. Patient has risk factors including hypertension, hyperlipidemia, smoking, and renal/vascular disease. Patient had a negative stress test in 2016. Echocardiogram in 2016 showed EF of 65%, echocardiogram this visit shows preserved EF remaining 6065%, moderate LV DD no evidence of PFO and no significant valvular dysfunction. Continue aspirin, statin, beta paulo, Plavix. Per cardiology, potential LHC today. Qualifiers: Chest pain type: unspecified Qualified Code(s): R07.9 - Chest pain, unspecified - Time Spent With Patient less than 15 minutes - Subjective Interval history: Patient was seen and assessed at 9:35 AM. Patient was alert, awake, engaging and pleasant. She reports left-sided chest pain for "a couple of years." She reports that she has had multiple tests performed interval negative. She states that chest pain began on the right side which was concerning and brought her to the emergency department. She reports the chest pain continues today, rates it 4/10. She is going to have an LHC today. Nephrology is following her for renal artery stenosis and hypertension. She denies headache, nausea, vomiting, diaphoresis, abdominal pain, dizziness or syncope. She denies recent URI symptoms and denies that the pain is reproducible palpation, deep inspiration, or movement. - Constitutional Vitals: Temp Pulse Resp BP Pulse Ox 97.2 F L 51 16 161/62 96 03/15/17 10:52 03/15/17 10:52 03/15/17 10:52 03/15/17 10:52 03/15/17 10:52 General appearance: Present: cooperative, A&O X 3, pleasant, no acute distress, answers questions appropriately - Head Head exam: Present: atraumatic, normal inspection, normocephalic - Eye Eye exam: Present: normal appearance, conjuntiva pink, sclera anicteric - Neck Neck exam general surgery: Present: supple, trachea midline. Absent: lymphadenopathy, tenderness - Respiratory Respiratory exam: Present: CTAB. Absent: accessory muscle use, prolonged expiratory phase, rales, rhonchi, wheezes, tachypnea - Cardiovascular Cardiovascular exam: Present: RRR, +S1, +S2. Absent: diastolic murmur, distant heart sounds, gallop, rubs, systolic murmur, tachycardia - GI/Abdominal GI/Abdominal exam: Present: normal bowel sounds, soft. Absent: distended, hepatomegaly, tenderness - Extremities Exam Extremities exam: Present: normal capillary refill, normal inspection, warm, radial pulses palpable and symmetrical. Absent: calf tenderness, cyanotic, pedal edema - Neurological Exam Neurological exam: Present: alert, oriented X3, no focal deficits. Absent: facial droop, speech deficit - Skin Skin exam: Present: dry, intact, normal color, warm. Absent: rash Internal Medicine: Result - Labs CBC & Chem 7: 03/14/17 14:20 03/15/17 05:54 Labs: Short CBC 03/14/17 Range/Units 14:20 WBC 8.1 (4.3-11.1) K/mcL Hgb 11.0 L (11.5-15.4) g/dL Hct 33.1 L (35.3-44.9) % Plt Count 218 (140-400) K/mcL [facility] 03/14/17 03/15/17 14:20 05:54 Sodium 139 139 Potassium 4.4 4.5 Chloride 108 107 Carbon Dioxide 24 25 BUN 26 H 25 H Creatinine 1.39 H 1.48 H Glucose 131 H 99 Calcium 9.0 9.4 Consult Discharge Plan - Plan Referrals: Amber Billings CNP [Primary Care Provider] - 03/18/17 1:40 pm
--- NOTE | 2017-03-15 13:38 | Invasive Diagnostic Lab Proc ---
Name: Rena Gambino Date of Study: 03/15/2017 Date: 1955 Ht: 61.0in Medical Record#: [id number] Age: 61 Wt: 130.29lb Gender: Female BSA: 1.57 Order #: [id number] BMI: 24.63 Physicians Procedure Physician: Kit Ramirez MD, FACC Referring MD: Referring MD: Staff Name Position Time In Hilda Rainey RT Monitor 11:43 AM Yo Acevedo RN Surgical Instrument Mechanic 11:43 AM Gene Vitale RT (R) Scrub 11:43 AM Indications Indication Unstable Angina Procedures Performed Procedure L HRT ARTERY/VENTRICLE ANGIO AORTOGRAPHY, ABDOMINAL S&I IV Doppler BLD Flow 1st Vessel IV Doppler BLD Flow 1st Vessel IV Doppler BLD Flow 1st Vessel PRQ CARD RENEE STENT W/ANGIO 1 VSL Pre-Procedure Checklist Informed consent is complete signed and on chart. H&P is on chart. ID band is on and ID verified with patient. Patient NPO for procedure The procedure was described for the patient and questions were answered. Blood Pressure: 198/89 ECG is on chart. Rhythm: SR Plan of Care Patient will tolerate the procedure without complications. Adequate level of comfort will be maintained. Hemodynamics will remain stable Patient will recover from procedure without complications. Respiratory function will be maintained. Cardiac rhythm will remain stable. Patient temperature will be maintained. Patient and/or family have verbalized understanding of the procedure. Patient Education Chief Complaint/Reason for Test: Cardiac Cath Developmental Category: Adult (18-64 years) Developmentally Appropriate for Age: Yes Learning Barriers: None Education Needs: Procedure Education Method: Verbal Information Taught: Cardiac Cath Educational Evaluation: Able to repeat information Intravenous Access Time IV Size Location DC'd Fluid/Drip Rate Units RN Started with 20g 1 1/4" Rt Arm 0.9NaCl 25 ml/hr Allergies diphenhydramine cephalexin sulfamethoxazole trimethoprim Iodinated Contrast- Oral and IV Dye Penicillins NSAIDS (Non-Steroidal Anti-Inflamma Vital Signs Time BP (mmHg) HR (bpm) O2 Sat. RR (bpm) LOC 11:46 AM / % 5 = Fully awake and oriented or at pre-proc level 11:46 AM / % 4 = Oriented but drowsy 12:01 PM / % 4 = Oriented but drowsy 12:16 PM / % 4 = Oriented but drowsy 12:32 PM / % 4 = Oriented but drowsy 12:47 PM / % 4 = Oriented but drowsy 11:52 AM 198 / 89 48 93 % 37 11:56 AM 186 / 68 50 94 % 23 12:02 PM 176 / 82 47 93 % 16 12:07 PM 166 / 79 51 92 % 13 12:11 PM 166 / 98 52 91 % 14 12:16 PM 143 / 72 56 90 % 21 12:21 PM 142 / 64 53 93 % 14 12:26 PM 98 / 52 63 92 % 16 12:32 PM 138 / 58 57 94 % 24 12:36 PM 137 / 62 58 94 % 15 12:41 PM 125 / 58 72 95 % 26 12:47 PM 145 / 61 55 91 % 23 12:51 PM 143 / 48 56 89 % 22 12:56 PM 112 / 45 68 98 % 18 01:02 PM 144 / 51 57 90 % 41 01:06 PM 158 / 61 58 89 % 22 01:11 PM 158 / 72 60 95 % 18 01:02 PM / % 4 = Oriented but drowsy Procedural Medications Time Medication Dose Units Method Given By 11:46 AM Oxygen 2 L/min nasal cannula Yo Acevedo RN 11:51 AM Versed 2 mg Intravenous Yo Acevedo RN 11:51 AM Fentanyl 50 mcg Intravenous Yo Acevedo RN 12:02 PM Lidocaine 2% 19 ml Subcutaneous Kit Ramirez MD, FACC 12:05 PM Hydralazine 10 mg Intravenous Yo Acevedo RN 12:25 PM Heparin 4000 units Intravenous Yo Acevedo RN 12:25 PM Nitroglycerin 200 mcg Intracoronary Kit Ramirez MD 12:26 PM Adenosine 200 mcg Intracoronary Kit Ramirez MD, FACC 12:32 PM Adenosine 100 mcg Intracoronary Kit Ramirez MD, FACC 12:36 PM Adenosine 512 mg/kg/min Intravenous Kit Ramirez MD, FACC 12:42 PM Adenosine 512 mg/kg/min Intracoronary Kit Ramirez MD, FACC 12:51 PM Nitroglycerin 200 mcg Intracoronary Kit Ramirez MD 12:53 PM Adenosine 512 mcg/kg/min Intracoronary Kit Ramirez MD, FACC 12:58 PM Nitroglycerin 200 mcg Intracoronary Kit Ramirez MD 01:04 PM Heparin 1000 units Intravenous Audra Stein RN 01:15 PM Plavix 300 mg Orally Audra Stein RN ASA Classification: CLASS II- Mild systemic disease (i.e. well-controlled diabetes, hypertension, asthma, cigarette smoking) Rufus Score Preprocedure Postprocedure Activity 2- Moves 4 extremities sustained head lift Activity 2- Moves 4 extremities sustained head lift Circulation 2- SBP +/= 20 points of pre-anesthetic level Circulation 2- SBP +/= 20 points of pre-anesthetic level Consciousness 2- Awake and alert oriented x 3 Consciousness 2- Awake and alert oriented x 3 O2 Saturation 2- Able to maintain O2 satruation of 92% on room air O2 Saturation 2- Able to maintain O2 satruation of 92% on room air Respiratory 2- Able to deep breathe and cough well Respiratory 2- Able to deep breathe and cough well Total Score 10 Total Score 10 Contrast Agent: Isovue Diagnostic Contrast: 116 ml Total Contrast: 116 ml Fluoro Dose: 504 mGy Activated Clotting Time Time Seconds to Clot 01:02 PM 269 Procedure Log Time Note Enter By 11:43 AM Pt arrived to center medical and lab director 2 at 11:43 kkner 11:43 AM Hilda Rainey RT Position: Monitor Time in: :43 kkner 11:43 AM Yo Acevedo RN Position: Surgical Instrument Mechanic Time in: :43 kkner 11:44 AM Gene Vitale RT (R) Position: Scrub Time in: :43 kk 11:45 AM Patient charges- Angio tray pack, Navilyst 3mm J, Pulse Oximetry and ACIST tubing and transducer [email or web address] 11:45 AM Case Delayed No [email or web address] 11:45 AM Hair removed from procedure site in procedure lab using clippers. Bilateral groin prepped with Chloraprep by Jesenia Hammer RT (R), safety strap applied then patient was draped. Skin intact. kk 11:46 AM Physician arrived 11:45 kkallner 11:46 AM ASA Class CLASS II- Mild systemic disease (i.e. well-controlled diabetes, hypertension, asthma, cigarette smoking) kkallner 11:46 AM Meet and greet completed kkall 11:46 AM Sign in performed according to hospital policy. kkall 11:46 AM Procedure start 11:46 kkallner 11:46 AM Time: 11:46 Oxygen on at 2 L/min per nasal cannula by CurtisYo lara RN 11:46 AM Time: :46 Patient comfortable and pain free: Yes kkallner 11:46 AM Time: :46LOC: 5 = Fully awake and oriented or at pre-proc level kkallner 11:46 AM Clinical Presentation: Unstable angina kkallner 11:50 AM CathStat 11:50 AM Vitals capture started with the following parameters, Patient=Adult, Interval=5 min, Initial Fbacyrib=983 mmHg, Deflation Rate=5 mmHg, Cuff placed on Right Arm 11:51 AM Time: 11:51 Versed 2 mg Intravenous Given by Yo Acevedo RN 11:51 AM Time: 11:51 Fentanyl 50 mcg Intravenous [facility] 11:52 AM HR=48 bpm, AEUM=841/89 mmhg, SpO2=93.0 %, Resp=37 B/min 11:52 AM Pressure channel 1 zero failed. 11:52 AM Pressure channel 1 zeroed. 11:56 AM HR=50 bpm, YAIS=892/68 mmhg, SpO2=94.0 %, Resp=23 B/min 12:01 PM Time: 11:46 Patient comfortable and pain free: Yes kkallner 12:01 PM Time: :46LOC: 4 = Oriented but drowsy [facility] 12:02 PM Time out performed according to hospital policy kkall 12:02 PM HR=47 bpm, JFFA=310/82 mmhg, SpO2=93.0 %, Resp=16 B/min 12:03 PM Time: 12:02 19 ml Lidocaine 2% to right groin Subcutaneous Given by Kit Ramirez MD, [facility] 12:05 PM Time: 12:05 Hydralazine 10 mg Intravenous Given by Yo Acevedo RN [facility] 12:05 PM 5Fr FL 4 catheter inserted over the wire [facility] 12:05 PM wire removed [facility] 12:05 PM LCA angiography performed in multiple views. [facility] 12:06 PM Recorded Pressure: Ao, HR=50, Condition=Condition 1 (Aorta) Ao 161/57/96 12:07 PM HR=51 bpm, YVRW=582/79 mmhg, SpO2=92.0 %, Resp=13 B/min 12:07 PM Catheter [facility] 12:07 PM 5Fr FR 4 catheter inserted over the wire [facility] 12:07 PM wire removed kk 12:08 PM RCA angiography performed in multiple views. kk 12:08 PM Catheter selectively placed in left ventricle kk 12:09 PM Recorded Pressure: LV, HR=50, Condition=Condition 1 (Left Ventricle) LV 155/2/15 12:09 PM Recorded Pressure: LV, Ao, HR=51, Condition=Condition 1 (Left Ventricle) LV 156/3/11, (Aorta) Ao 155/57/92 12:10 PM Recorded Pressure: Ao, HR=50, Condition=Condition 1 (Aorta) Ao 139/60/90 12:10 PM Coronary Dominance: right kk 12:11 PM Lesion found in Ramus. Pre Stenosis: 70 Pre MARY BETH Flow: 12:11 PM HR=52 bpm, DJFY=734/98 mmhg, SpO2=91.0 %, Resp=14 B/min 12:12 PM no LV injection. pressures recorded 12:12 PM catheter placed to take renal injection 12:13 PM Left renal and Right renal angiography performed in multiple views 12:16 PM Time: 12:01 Patient comfortable and pain free: Yes 12:16 PM HR=56 bpm, KGSK=341/72 mmhg, SpO2=90.0 %, Resp=21 B/min 12:16 PM Time: 12:01LOC: 4 = Oriented but drowsy 12:21 PM HR=53 bpm, ZUAG=308/64 mmhg, SpO2=93.0 %, Resp=14 B/min 12:22 PM Catheter removed 12:22 PM 6Fr JR 4 Convey guide catheter was used to cannulate the PCI vessel successfully. reused? No : PM .014 [place] 190cm guide wire across target lesion- successful. reused? No 12:24 PM Recorded Pressure: Ao, HR=58, Condition=Condition 1 (Aorta) Ao 113/45/75 12:25 PM Asict catheter advanced to target lesion. 12:25 PM Time: 12:25 Heparin 4000 units Intravenous Given by Yo Acevedo RN [facility] 12:25 PM Time: 12:25 Nitroglycerin 200 mcg Intracoronary Given by Kit Ramirez MD [facility] 12:26 PM HR=63 bpm, NIBP=98/52 mmhg, SpO2=92.0 %, Resp=16 B/min 12:30 PM Time: 12:26 Adenosine 200 mcg administered Intracoronary by Kit Ramirez MD, [facility] 12:30 PM NIBP STAT measurement started. 12:31 PM FFR Measurement: 0.87 kkallner 12:32 PM Time: 12:16LOC: 4 = Oriented but drowsy kkallner 12:32 PM Time: 12:16 Patient comfortable and pain free: Yes kkall 12:32 PM Time: 12:32 Adenosine 100 mcg administered Intracoronary by Kit Ramirez MD, [facility] 12:32 PM FFR Measurement: .87 [facility]CA [facility] 12:32 PM Recorded Pressure: Ao, HR=57, Condition=Condition 1 (Aorta) Ao 123/51/78 12:32 PM HR=57 bpm, SRBV=122/58 mmhg, SpO2=94 %, Resp=24 B/min 12:36 PM HR=58 bpm, ZSON=147/62 mmhg, SpO2=94.0 %, Resp=15 B/min 12:36 PM Time: 12:36 Adenosine 512 mg/kg/min administered Intravenous by Kit Ramirez MD, [facility] 12:40 PM FFR Measurement: .80 RCA kkallner 12:41 PM HR=72 bpm, FZMO=278/58 mmhg, SpO2=95.0 %, Resp=26 B/min 12:41 PM Time: 12:42 Adenosine 512 mg/kg/min administered Intracoronary by Kit Ramirez MD, [facility] 12:42 PM FFR Measurement: .83 RCA kkallner 12:43 PM wire and ACIST catheter removed kk 12:43 PM catheter removed kk 12:44 PM Lesion found in Mid RCA. Pre Stenosis: 65 Pre MARY BETH Flow: kkall 12:47 PM Time: 12:32 Patient comfortable and pain free: Yes kkall 12:47 PM Time: 12:32LOC: 4 = Oriented but drowsy kkallner 12:47 PM HR=55 bpm, XJCB=166/61 mmhg, SpO2=91.0 %, Resp=23 B/min 12:48 PM 5Fr JL4 Convey guide catheter was used to cannulate the PCI vessel successfully. reused? No kkner 12:49 PM ACIST catheter reinserted 12:51 PM Time: 12:51 Nitroglycerin 200 mcg Intracoronary Given by Kit Ramirez MD 12:51 PM HR=56 bpm, XQPU=674/48 mmhg, SpO2=89 %, Resp=22 B/min 12:54 PM Time: 12:53 Adenosine 512 mcg/kg/min administered Intracoronary by Kit Ramirez MD, [facility] kk 12:54 PM FFR Measurement: .96 Ramus kk 12:55 PM Acist catheter and wire repositioned to LAD kk 12:56 PM FFR Measurement: .77 Mid LAD kk 12:56 PM FFR Measurement: .85 Prox LAD kkner 12:56 PM Adenosine d/c kk 12:56 PM HR=68 bpm, VTEW=434/45 mmhg, SpO2=98.0 %, Resp=18 B/min 12:56 PM ASICT catheter remvoed 12:58 PM Time: 12:58 Nitroglycerin 200 mcg Intracoronary Given by Kit Ramirez MD 12:59 PM ACT drawn kk 12:59 PM Recorded Pressure: Ao, HR=61, Condition=Condition 1 (Aorta) Ao 114/47/72 01:00 PM 2.25mm x 12mm Synergy drug-eluting stent across target lesion- successful Lot #[id number] MID LAD 01:00 PM Recorded Pressure: Ao, HR=60, Condition=Condition 1 (Aorta) Ao 117/55/80 01:02 PM Time: 12:47LOC: 4 = Oriented but drowsy 01:02 PM Time: 12:47 Patient comfortable and pain free: Yes kk 01:02 PM HR=57 bpm, OKVP=977/51 mmhg, SpO2=90.0 %, Resp=41 B/min 01:02 PM Stent deployed @ 11 jamar for 22 seconds 01:04 PM Time: 13:04 Heparin 1000 units Intravenous Given by Audra Stein RN 01:04 PM Stent delivery system removed intact. kk 01:04 PM 2.5 mm x 6mm NC Trek Rx balloon across target lesion- successful. reused? No 01:05 PM Lesion found in Mid LAD. Pre Stenosis: 70 Pre MARY BETH Flow: kk 01:05 PM Balloon inflated @ 16 jamar for 25 seconds kkallner 01:06 PM Lesion found in Proximal LAD. Pre Stenosis: 20 Pre MARY BETH Flow: kkallner :06 PM balloon and wire removed kkner 01:06 PM HR=58 bpm, BKXH=243/61 mmhg, SpO2=89.0 %, Resp=22 B/min 01:07 PM Guide catheter removed intact. kkallner 01:09 PM Left Main Coronary Artery with 0% stenosis kkallner 01:10 PM Proximal Left Anterior Descending Coronary Artery with 20% stenosis. If graft is supplying this territory, 0 % stenosis. kkallner 01:10 PM Mid/Distal Left Anterior Descending Coronary Artery and diagonal branches with 70% stenosis. If graft is supplying this area, 0 % stenosis kkallner 01:10 PM Circumflex, Obtuse Marginal, Left Posterior Descending, and Left Posterolateral Coronary Arteries with 0 % stenosis. If graft is supplying this area, 0 % stenosis kkallner 01:10 PM Right Coronary, Right Posterior Descending Arteries with Right Posterolateral and Acute Marginal branches with 65 % stenosis. If graft is supplying this area, 0 % stenosis kkallner :10 PM Ramus with 70% stenosis. If graft is supplying this area, 0 % stenosis kkallner 01:11 PM HR=60 bpm, FCSG=276/72 mmhg, SpO2=95.0 %, Resp=18 B/min 01:13 PM Procedure completed at 13:13 kkner :13 PM Sign out completed: Radiation Dose 504.12 mGy Fluoro Time: 11.6 Isovue 370 - 200ml contrast 116 ml given by Kit Ramirez MD, FACC. Complications: NoneCardiac Rehab Consult needed: YesConfirmed administered medications: No PM Isovue 370 - 200ml,1 Bottle(s) used. kkall:13 PM Sheath left in place to be pulled on floor/holding area allner :14 PM Estimated Blood Loss: minimal kkallner :14 PM Post ECG SR kkallner :14 PM Post Blood Pressure 158/72 kkallner :14 PM 13:14 Post Pulses Bilateral DP & PT 2+ kkallner :14 PM Information taught Cardiac Cath and PCI kkall:14 PM Education needs Procedure, Plan of Care, and Responsibilities of Patient in Care kkallner 01:14 PM Learning barriers :None kkallner 01:15 PM Education Methods Verbal kkallner 01:15 PM Education evaluation Able to repeat information kkallner 01:15 PM Site status No bleeding/hematoma - Rt Groin as reported by Gene Vitale RT (R) at 13:15 kkallner 01:15 PM Opsite applied kkallner 01:15 PM Plavix, Effient or Brilinta given Yes kkallner 01:15 PM Time: 13:15 Plavix 300 mg Orally Given by Audra Stein RN kkallner 01:15 PM Delay to floor No kkallner 01:15 PM Patient out of room: 13:15 kkallner 01:16 PM no family at this time kkallner 01:16 PM Complications: None kkner 01:16 PM Fluoro Time: 11.6 kkner 01:16 PM Isovue 370 - 200ml contrast 116 ml given by Kit Ramirez MD, FACC. kkallner 01:16 PM Radiation Dose 504.12 mGy kkallner 01:17 PM Time: 13:02 Patient comfortable and pain free: Yes ner :17 PM Time: 13:02LOC: 4 = Oriented but drowsy kkallner 01:26 PM Report given to 2N RN RN Pt taken to 2N Room #2. 13:26 [facility] Complications Complication None None Hemodynamics Pressures Site Systolic/A Wave Diastolic/V Wave Mean AO 161 57 96 LV 155 2 15 LV 156 3 11 AO 155 57 92 AO 139 60 90 AO 113 45 75 AO 123 51 78 AO 114 47 72 AO 117 55 80 Post Procedure Information Blood Pressure: 158/72 mmHg Rhythm: SR Post procedural instructions were given Surgery consult for CABG Site Checks Time Location Status Staff Sheath In? Note 01:15 PM Rt Groin No bleeding/hematoma Gene Vitale RT (R) Pulses Time Site Pre-Procedure Post-Procedure Note Bilateral DP & PT 2+ Bilateral radial 2+ 1:14:00 PM Bilateral DP & PT 2+ Updated by Hilda Rainey RT RosieR) on 03/15/2017 1:31:22 PM electronically signed on 03/15/2017 1:32:15 PM with status of Final
[2017-03-15] MEDS ORDERED: *HR* Atropine Sulfate 1 MG/10 ML SYRINGE ONE (16:19)
--- NOTE | 2017-03-15 16:31 | Nephrology Progress Note ---
Date of Encounter: 03/15/17 Time of Encounter: 16:30 - Assessment and Plan (1) Accelerated essential hypertension Current Visit: Yes Status: Acute Likely due to renal artery stenosis, needs intervention with vascular (2) Renal artery stenosis Current Visit: Yes Status: Acute (3) Chronic kidney disease, stage 3 Current Visit: Yes Status: Chronic Subjective Principal diagnosis: CP Interval history: Pt seen and examined s/p LHC and renal angiogram s/p stent to LAD and renal artery re-stenosis bilateral Objective - Vital Signs Vital signs: Vital Signs Temp Pulse Resp BP Pulse Ox 03/15/17 16:15 48 145/68 03/15/17 16:00 56 117/57 03/15/17 15:45 53 116/58 03/15/17 15:30 54 118/57 98 03/15/17 15:15 97.4 F L 64 18 91/66 95 03/15/17 15:04 95 03/15/17 15:00 65 119/62 03/15/17 14:45 61 145/84 03/15/17 14:30 56 152/66 03/15/17 14:15 48 167/74 03/15/17 14:00 51 168/80 03/15/17 13:45 57 180/85 03/15/17 13:40 96.8 F L 45 15 172/71 94 03/15/17 13:35 45 172/71 03/15/17 10:52 97.2 F L 51 16 161/62 96 03/15/17 06:47 97.9 F 44 15 159/65 92 03/15/17 04:45 97.8 F 49 12 156/64 96 03/14/17 23:16 97.7 F 52 12 145/70 95 03/14/17 21:15 63 03/14/17 20:50 97.6 F 51 12 186/77 97 Intake and Output 03/15/17 03/15/17 03/15/17 07:59 15:59 23:59 Output Total 900 / 900 Balance -900 / -900 Output: Urine 900 / 900 Other: Weight 59.239 kg Patient Weight 03/15/17 23:59 Weight 59.239 kg - Lab 03/14/17 14:20 03/15/17 05:54 Most recent lab results Calcium 9.4 mg/dL (8.6-10.8) 03/15/17 05:54 Magnesium 2.0 mg/dL (1.6-2.6) 03/12/17 06:40 Urine Creatinine 56 mg/dL 03/12/17 20:10 Urine Total Protein < 7 mg/dL (1-14) 03/12/17 20:10 Consult Discharge Plan - Plan Referrals: Amber Billings, HALEY [Primary Care Provider] - 03/18/17 1:40 pm
[2017-03-15] MEDS ORDERED: 0.9 % Sodium Chloride 1,000 ML IVC SCH (16:45)
--- NOTE | 2017-03-15 17:13 | Vascular/Endovasc Consult Note ---
Date of Encounter: 03/15/17 Time of Encounter: 17:50 Assessment and Plan (1) Renal artery stenosis Current Visit: Yes Status: Chronic The patient has a long history of renal artery stenosis. She underwent 5 x 20mm bilateral renal stent placemetn in 2011. She has been followed by vascular surgery since 2011. She has required renal angioplasty for recurrent symptomatic stenosis, most recently in April 2016. her renal duplex was reviewed. She was noted to have no signicant stenosis in the visualized segments, however, her bilateral renal artery origins were not clearly visualized. Renal angigoraphy reveals that the right renal artery stent is patent, however high grade ostial stenosis appears to be present proximal to the stent. A similar ostial high grade stenosis appears to be present in the left renal artery. The patient will need a dedicated renal angiogram with possible angioplasty versus stent placement. She has CKD stage 3 and received 116ml of contrast today. Continue to treat BP and monitor creatinine. Likely plan for renal angiogram with possible intervention next week. (2) Chronic kidney disease, stage 3 Current Visit: Yes Status: Chronic (3) Mixed hyperlipidemia Current Visit: No Status: Chronic (4) Accelerated essential hypertension Current Visit: Yes Status: Acute (5) COPD (chronic obstructive pulmonary disease) Current Visit: Yes Status: Chronic Qualifiers: COPD type: unspecified COPD Qualified Code(s): J44.9 - Chronic obstructive pulmonary disease, unspecified (6) Unstable angina Current Visit: Yes Status: Acute - History of Present Illness Consult date: 03/15/17 Requesting physician: Margarita Marsh Consult reason: Renovascular hypertension Chief complaint: Recurrent renal artery stenosis History of present illness: Ms. Gambino is a 61 year old female with a katherine history of renal artery stenosis. She was seen by vascular surgery and underwent bilateral renal artery stent placement for renovascular hypertension and chronic kidney disease in 2011. She has been followed by vascular surgery since the stents were placed and has required angioplasty in the past due to recurrent symptomatic stenosis. The patient present to [facility] ER with complaints of blurred vision, headaches and chest discomfort. She was noted to have accelerated hypertension and was admitted for further evaluation. Her BP was controlled and she was noted to have symptoms of unstable angina. She underwent a [facility] today with LAD drug eluting coronary stent placement. The patient is now seen on . She is without complaints. She reports that she continues to smoke. She denies any chest pain or shortness of breath. Past Med Surg Social Fam HX - Past Medical History Medical history: asthma, COPD, coronary artery disease, CVA, DVT, hyperlipidemia , hypertension, migraine, renal disease, thyroid disease Psychiatric history: anxiety, depression - Past Surgical History Surgical History: carotid endarterectomy, hysterectomy, other - Social History Smoking Status: Current every day smoker Packs per day: 1/2 Smokeless Tobacco Status: No Alcohol use: none Drug use: none - Family History Father Hx Family Cardiac Disorders: Yes (CAD) Hx Family Endocrine Disorder: Yes (Diabetes) Mother Hx Family Cardiac Disorders: Yes (CAD) Hx Family Endocrine Disorder: Yes (diabetes) Medications and Allergies Albuterol Sulfate [Albuterol Inhaler] 2 puff IH Q4HR PRN 02/15/15 [History] Atorvastatin [Lipitor] 40 mg PO HS 02/15/15 [History] Clopidogrel [Plavix] 75 mg PO HS 02/15/15 [History] Ipratropium/Albuterol Neb [Duoneb] 3 ml IH Q6HR PRN 02/15/15 [History] Levothyroxine [Synthroid] 75 mcg PO DAILY 02/15/15 [History] SUMAtriptan [Imitrex] 50 mg PO Q2H PRN 02/15/15 [History] TraZODone 200 mg PO HS 02/15/15 [History] diazePAM [Valium] 5 mg PO HS 02/15/15 [History] Acetaminophen [Tylenol] 1,000 mg PO Q6HR PRN #0 tablet 05/09/16 [Rx] Carvedilol [Coreg] 25 mg PO DAILY 05/09/16 [History] Cetirizine HCl [Zyrtec] 10 mg PO DAILY 05/09/16 [History] Cholecalciferol (Vitamin D3) [Vitamin D3] 1,000 unit PO DAILY 05/09/16 [History] CloNIDine HCl [Kapvay] 0.2 mg PO TID 05/09/16 [History] Oxybutynin Chloride [Ditropan Xl] 10 mg PO DAILY 05/09/16 [History] Desvenlafaxine Succinate [Pristiq] 50 mg PO DAILY 12/10/16 [History] Hydralazine HCl 50 mg PO TID 12/10/16 [History] Ipratropium [place] 2 spr NS BID 12/10/16 [History] Montelukast [Singulair] 10 mg PO DAILY 12/10/16 [History] Aspirin [Lo-Dose Aspirin EC] 81 mg PO DAILY 03/12/17 [History] 3 Allergy/AdvReac Type Severity Reaction Status Date / Time cephalexin [From Keflex] Allergy Severe Swelling Verified 12/10/16 06:19 of Lip/Tongue/Throat Penicillins [PCN] Allergy Severe Swelling Verified 12/10/16 06:19 of Lip/Tongue/Throat sulfamethoxazole Allergy Severe Swelling Verified 12/10/16 06:19 [From Bactrim] of Lip/Tongue/Throat trimethoprim [From Bactrim] Allergy Severe Swelling Verified 12/10/16 06:19 of Lip/Tongue/Throat diphenhydramine Allergy Mild Irritable Verified 12/10/16 06:19 [From Benadryl] gentamicin Allergy See Verified 12/10/16 06:19 Comments Iodinated Contrast- Oral and Allergy See Verified 12/10/16 06:19 IV Dye Comments nitrofurantoin Allergy See Verified 12/10/16 06:19 Comments NSAIDS (Non-Steroidal Allergy See Verified 12/10/16 06:19 Anti-Inflamma Comments vancomycin Allergy See Verified 12/10/16 06:19 Comments All Systems Review: A 10-system review of systems was performed and is negative for pertinent findings except as documented above in the HPI. Exam Vital Signs, Last 4 Hours Temp Pulse Pulse Resp BP Pulse Ox 03/15/17 16:55 97.4 F L 64 64 18 134/87 95 03/15/17 16:50 97.4 F L 65 65 18 141/68 98 03/15/17 16:45 97.4 F L 66 66 18 144/61 94 03/15/17 16:40 97.4 F L 56 52 18 136/77 97 03/15/17 16:35 97.4 F L 52 52 18 133/79 98 03/15/17 16:15 48 145/68 03/15/17 16:00 56 117/57 03/15/17 15:45 53 116/58 03/15/17 15:30 54 118/57 98 03/15/17 15:15 97.4 F L 64 18 91/66 95 03/15/17 15:04 95 03/15/17 15:00 65 119/62 03/15/17 14:45 61 145/84 03/15/17 14:30 56 152/66 03/15/17 14:15 48 167/74 03/15/17 14:00 51 168/80 03/15/17 13:45 57 180/85 03/15/17 13:40 96.8 F L 45 15 172/71 94 03/15/17 13:35 45 172/71 General: Present: Conversant, No Apparent Distress HEENT: Present: Atraumatic Cardiac: Present: Reg Rate and Rhythm Lungs: Present: Normal Breath Sounds Neuro: Present: Alert and responsive, No focal deficits noted, Motor nerves grossly intact, Sensory nerves grossly intact Abdomen: Present: Soft, Non-tender. Absent: Masses Vascular: Present: Normal capillary refill, Pulse, normal, Other (no heamtoma). Absent: Cyanosis, Edema Skin: Present: No rashes noted on visualized skin Consult Discharge Plan - Plan Referrals: Amber Billings CNP [Primary Care Provider] - 03/18/17 1:40 pm
[2017-03-15] MEDS: diazePAM 5 MG TABLET PO SCH (20:32)
[2017-03-15] MEDS: traZODone 50 MG TABLET PO SCH (20:32)
[2017-03-16] MEDS: *HR* Heparin 5,000 UNIT/ML VIAL SQ SCH ×2 (05:31→17:41)
[2017-03-16] MEDS: Loratadine 10 MG TABLET PO SCH (08:00)
[2017-03-16] MEDS: hydrALAZINE 25 MG TABLET PO SCH ×3 (08:00→19:38)
[2017-03-16] MEDS: Cholecalciferol (D-3) 1,000 UNIT TABLET PO SCH (08:01)
[2017-03-16] MEDS: Venlafaxine XR (24 HR) 75 MG CAP.ER.24H PO SCH (08:01)
[2017-03-16] MEDS: *HR* Acetylcysteine 20% 600 MG/3 ML ORAL SYRINGE PO SCH (08:01)
[2017-03-16] MEDS: amLODIPine 5 MG TABLET PO SCH (08:01)
[2017-03-16] MEDS: Aspirin Enteric Coated 81 MG Tablet PO SCH (08:01)
[2017-03-16] MEDS: cloNIDine HCl 0.1 MG TABLET PO SCH ×3 (08:01→19:38)
[2017-03-16 08:05] LABS: Basophils # 0.1 K/mcL (0.0-0.2); Basophils % 0.5 %; Eosinophils # 0.4 K/mcL (0.0-0.6); Eosinophils % 4.5 %; Hemoglobin 10.5 g/dL (11.5-15.4); Immature Granulocytes % 0.3 % (0-4); Lymphocytes # 1.8 K/mcL (0.6-4.6); Lymphocytes % 19.1 %; Mean Corpuscular HGB Conc 31.8 g/dL (31.6-35.5); Mean Corpuscular Hemoglobin 29.2 pg (28.0-33.3); Mean Corpuscular Volume 91.9 fL (83.0-100.0); Mean Platelet Volume 9.7 fL (9.4-12.4); Monocytes # 0.7 K/mcL (0.0-1.3); Monocytes % 7.3 %; Neutrophils # 6.3 K/mcL (1.6-8.9); Platelet Count 213 K/mcL (140-400); Red Blood Count 3.59 M/mcL (3.82-4.97); Red Cell Distribution Width 13.6 % (11.5-14.5); Segmented Neutrophils % 68.3 %
--- NOTE | 2017-03-16 09:00 | Cardiology Progress Note ---
Date of Encounter: 03/16/17 Time of Encounter: 08:00 Assessment and Plan (1) Accelerated essential hypertension Current Visit: Yes Status: Acute Per Cardiology: -BPs now 120-140s systolic. -Continue current regimen. (2) Chest pain Current Visit: Yes Status: Acute Per Cardiology: -S/p LHC yesterday with unofficial report reviewed with RENEE to mid LAD. -Deneis chest pain. -Right groin access site without hematoma, small area of ecchymosis noted. -Right groin site management education given to patient. -ON asa, statin, beta paulo, and plavix. -Recommend continuing dual anti-platelet therapy uninterrupted for at least one year. Pateint states understanding. -Cardiology will sign off and will follow in outpatient setting. FOllow up set. -Of note, patient is moving to [facility] in one week. Will attempt to schedule follow up prior to move. Recommend pateint follow with cardiology in [facility]. Qualifiers: Chest pain type: unspecified Qualified Code(s): R07.9 - Chest pain, unspecified Discussion w patient/family: The assessment and plan as outlined above was discussed with the patient who expressed understanding and agreement. All questions were answered. Thank you for involving us in the care of your patient. Please call with any questions. Discussed and reviewed with . Subjective Principal diagnosis: CP Interval history: Patient denies chest pain this morning. Denies complaints. Objective Vital Signs, Last 4 Hours Temp Pulse Resp BP Pulse Ox 03/16/17 08:11 53 03/16/17 06:27 97.7 F 56 16 141/64 92 General: Conversant, No Apparent Distress HEENT: Atraumatic, Normocephaly, Mucus Membranes Moist Neck: No JVD, Normal carotid pulses Cardiac: Reg Rate and Rhythm, Normal S1 and S2, No Murmur Lungs: Normal Breath Sounds, No Wheeze, Rales, Rhonchi Neuro: Alert and responsive, No focal deficits noted Abdomen: Soft, Non-Tender Skin: No rashes noted on visualized skin, Other (Right groin site without hematoma. Small area of ecchymosis noted. ) Musculoskeletal: No Chest Wall Tenderness Extremities: No Clubbing, No Cyanosis, No Edema, Normal Pulses Results 03/16/17 07:47 03/15/17 05:54 Lab Results Active Medications Acetaminophen (Tylenol) 650 mg PO Q6HR PRN PRN Reason: Mild Pain (1-3) Stop: 09/11/17 14:49 Last Admin: 03/15/17 20:32 Dose: 650 mg Acetylcysteine (Acetylcysteine 20%) 600 mg PO BID [facility] Stop: 03/16/17 09:01 Last Admin: 03/16/17 08:01 Dose: 600 mg Albuterol Sulfate (Albuterol Inhaler) 2 puff IH Q4HR PRN PRN Reason: Dyspnea Stop: 09/11/17 14:53 Amlodipine Besylate (Norvasc) 5 mg PO DAILY [facility] PRN Reason: Protocol Stop: 09/13/17 09:01 Last Admin: 03/16/17 08:01 Dose: 5 mg Aspirin (Aspirin Ec) 81 mg PO DAILY [facility] Stop: 09/12/17 09:01 Last Admin: 03/16/17 08:01 Dose: 81 mg Atorvastatin Calcium (Lipitor) 40 mg PO HS [facility] Stop: 09/11/17 21:01 Last Admin: 03/15/17 20:32 Dose: 40 mg Carvedilol (Coreg) 25 mg PO BID [facility] PRN Reason: Protocol Stop: 09/12/17 21:01 Last Admin: 03/16/17 08:00 Dose: 25 mg Clonidine HCl (Clonidine Hcl) 0.2 mg PO TID [facility] Stop: 09/11/17 21:01 Last Admin: 03/16/17 08:01 Dose: 0.2 mg Clopidogrel Bisulfate (Plavix) 75 mg PO HS [facility] Stop: 09/11/17 21:01 Last Admin: 03/15/17 20:32 Dose: 75 mg Diazepam (Valium) 5 mg PO HS [facility] Stop: 09/11/17 21:01 Last Admin: 03/15/17 20:32 Dose: 5 mg Heparin Sodium (Porcine) (Heparin) 5,000 unit SQ Q12HR [facility] Stop: 09/11/17 18:01 Last Admin: 03/16/17 05:31 Dose: 5,000 unit Hydralazine HCl (Hydralazine) 50 mg PO TID [facility] Stop: 09/11/17 21:01 Last Admin: 03/16/17 08:00 Dose: 50 mg Labetalol HCl (Labetalol) 10 mg IVP Q1H PRN PRN Reason: Blood Pressure - High Stop: 09/11/17 17:35 Levothyroxine Sodium (Synthroid) 75 mcg PO 0630 [facility] Stop: 09/12/17 06:31 Last Admin: 03/16/17 05:31 Dose: 75 mcg Loratadine (Claritin) 10 mg PO DAILY [facility] Stop: 09/12/17 09:01 Last Admin: 03/16/17 08:00 Dose: 10 mg Montelukast Sodium (Singulair) 10 mg PO DAILY [facility] Stop: 09/12/17 09:01 Last Admin: 03/16/17 08:00 Dose: 10 mg Naloxone HCl (Narcan) 0.4 mg IVP Q2MIN PRN PRN Reason: Opioid Reversal Stop: 09/11/17 14:49 Ondansetron HCl (Zofran) 4 mg IVP Q8HR PRN PRN Reason: Nausea And Vomiting Stop: 09/11/17 14:49 Last Admin: 03/15/17 20:28 Dose: 4 mg Oxybutynin Chloride (Ditropan) 5 mg PO BID [facility] Stop: 09/12/17 09:01 Last Admin: 03/16/17 08:01 Dose: 5 mg Sumatriptan Succinate (Imitrex) 50 mg PO Q2H PRN PRN Reason: Migraine Headache Stop: 09/12/17 17:15 Last Admin: 03/14/17 15:58 Dose: 50 mg Trazodone HCl (Trazodone) 200 mg PO HS [facility] Stop: 09/11/17 21:01 Last Admin: 03/15/17 20:32 Dose: 200 mg Venlafaxine HCl (Effexor Xr) 75 mg PO DAILY [facility] Stop: 09/12/17 09:01 Last Admin: 03/16/17 08:01 Dose: 75 mg Vitamin D (Vitamin D) 1,000 unit PO DAILY [facility] Stop: 09/12/17 09:01 Last Admin: 03/16/17 08:01 Dose: 1,000 unit Laboratory Tests 03/15/17 03/16/17 05:54 07:47 Hgb 10.5 L Creatinine 1.48 H - Imaging and Cardiology Chest Xray: report reviewed Echo: report reviewed Cardiac cath: report reviewed - EKG Interpretation EKG results cardiology: other (Telemetry reviewed with average HR previous 12 hours noted to be 51, sinus bradycardia. PVCs and PACs noted.) Consult Discharge Plan - Plan Referrals: Amber Billings, HALEY [Primary Care Provider] - 03/18/17 1:40 pm
[2017-03-16 10:56] LABS: Calcium 8.5 mg/dL (8.6-10.8); Potassium 4.5 mEq/L (3.5-4.5)
--- NOTE | 2017-03-16 12:37 | Vascular/Endovas Progress Note ---
Date of Encounter: 03/16/17 Time of Encounter: 12:34 - Assessment and plan (1) Renal artery stenosis Current Visit: Yes Status: Chronic Patient has recurrent renal artery disease. Patient will have repeat renal artery angiogram with Dr. Mariscal early next week. (2) Chronic kidney disease, stage 3 Current Visit: Yes Status: Chronic Patient has stage III kidney disease. Patient has mild elevation of her creatinine up to 1.7. Patient was encouraged to increase her fluid intake. She was informed as to why this is important and that we need to defer her angiogram for a few days but she will need to remain here in the hospital. - Subjective Interval history: Patient is a 61-year-old white female with a history of recurrent renal artery stenosis. She is status post stent angioplasty in 2011. She has required repeated intervention. The patient has marked hypertension when the restenosis occurs. Patient presented with multiple symptoms and required a cardiac catheterization with stent and 2+ yesterday. The patient will require a repeat renal artery angiogram and repeat renal artery intervention. However as she received greater than 100 mL's of contrast this needs to be deferred until early next week. Vital Signs, Last 4 Hours Temp Pulse Resp BP Pulse Ox 03/16/17 11:50 53 03/16/17 10:56 98.2 F 54 16 169/87 93 - Physical Examination General: Present: Conversant, No Apparent Distress HEENT: Present: Atraumatic Neck: Absent: JVD Cardiac: Present: Reg Rate and Rhythm, No Murmur Lungs: Present: Normal Breath Sounds Neuro: Present: Alert and responsive, No focal deficits noted, Cranial nerves grossly intact Abdomen: Present: Soft Results 03/16/17 07:47 03/16/17 10:32 Lab Results, Last 24 hours 03/16/17 03/16/17 07:47 10:32 WBC 9.3 Hgb 10.5 L Hct 33.0 L Plt Count 213 Sodium 137 Potassium 4.5 Chloride 107 Carbon Dioxide 21 BUN 29 H Creatinine 1.76 H Glucose 115 H Calcium 8.5 L Consult Discharge Plan - Plan Referrals: Amber Billings, ADVERTISING INTERN [Primary Care Provider] - 03/18/17 1:40 pm
[2017-03-16] MEDS: Acetaminophen 325 MG TABLET PO PRN (15:53)
--- NOTE | 2017-03-16 16:30 | Internal Med Progress Note ---
Date of Encounter: 03/16/17 Time of Encounter: 09:30 - Assessment and plan (1) Renal artery stenosis Current Visit: Yes Status: Chronic Assessment and plan: Patient with history of stents and bilateral renal arteries due to stenosis of unknown etiology. Patient with persistent hypertension, could be thrombosed. Vascular surgery has been consulted, I appreciate Dr. Mariscal's consultation and recommendations.. Nephrology is also following, again I appreciate Dr. Wen's recommendations and consultation. The patient had renal artery duplex that showed bilateral renal arteries are hemodynamically well maintained. Pt has been seen by vascular surgeon and will stay until Saturday or Saturday when renal angioplasty can be completed. I spoke with Dr. Ferrell today after he saw the pt and agrees that pt should stay for BP control and monitoring. Findings Renal Anatomy: The right kidney size measures 8.3 x 4.1 x 3.9 cm. The left kidney size measures 7.8 x 3.8 x 3.8 cm. Renal Duplex Right RAR: .9 Left RAR: 1.1 Side Vessel PSV EDV RI PI Accel Aorta 90.00 13.00 0.86 Left Proximal Renal Artery 96.00 18.00 0.81 Left Mid Renal Artery 87.00 24.00 0.72 Left Distal Renal Artery 88.00 22.00 0.75 Right Proximal Renal Artery 79.00 28.00 0.65 Right Mid Renal Artery 63.00 24.00 0.62 Right Distal Renal Artery 81.00 33.00 0.59 Updated by Aamir Ferrell MD, FACS on 03/13/2017 1:09:26 PM (2) Chronic kidney disease, stage 3 Current Visit: Yes Status: Chronic Assessment and plan: Serum creatinine is 1.76, GFR 29. This appears to be at patient's baseline. Continue to avoid nephrotoxins and NSAIDs. Nephrology is following. I appreciate the recommendations. (3) Mixed hyperlipidemia Current Visit: No Status: Chronic Assessment and plan: Chronic. Continue home medications. Cholesterol WNL, triglycerides elevated 2016. (4) Accelerated essential hypertension Current Visit: Yes Status: Acute Assessment and plan: Blood pressure is better controlled in the inpatient setting, remains mildly hypertensive. Will continue to monitor and adjust accordingly after assessment of renal stenosis. Plan as above for renal angioplasty. (5) COPD (chronic obstructive pulmonary disease) Current Visit: Yes Status: Chronic Assessment and plan: No acute exacerbation. Continue home medications. Encourage smoking cessation. 02 as needed to maintain sats > 92%. Pt has denied need for nicotine patch. Qualifiers: COPD type: unspecified COPD Qualified Code(s): J44.9 - Chronic obstructive pulmonary disease, unspecified (6) DVT prophylaxis Current Visit: Yes Status: Acute Assessment and plan: Heparin SQ. Encourage pt to sit in chair. (7) Chest pain Current Visit: Yes Status: Acute Assessment and plan: Patient reports chest pain history for approximately 2 years. Chest pain continues today. She reports a lengthy history of left-sided chest pain with radiation to the right side this time which was concerning. She did have associated diaphoresis, denies nausea or vomiting or shortness of breath. EKG was normal sinus troponins are negative. Patient has risk factors including hypertension, hyperlipidemia, smoking, and renal/vascular disease. Patient had a negative stress test in 2016. Echocardiogram in 2016 showed EF of 65%, echocardiogram this visit shows preserved EF remaining 6065%, moderate LV DD no evidence of PFO and no significant valvular dysfunction. Continue aspirin, statin, beta paulo, Plavix. Pt had LHC 03/15, RENEE to mid LAD. Pt denies chest pain today. Continue DAPT for 1 year untinterrupted. Qualifiers: Chest pain type: unspecified Qualified Code(s): R07.9 - Chest pain, unspecified - Time Spent With Patient less than 15 minutes - Subjective Interval history: Patient was seen and assessed at 9:30 AM. Patient was alert, awake, engaging and pleasant. Pt is moving to [place] at the end of next week and states that she needs to get all of her appointments in this week. Pt denies chest pain and states that she feels better today. Denies n/v/d, abdominal pain, headache, dizziness, back pain, or urinary symptoms. - Constitutional Vitals: Temp Pulse Resp BP Pulse Ox 98.2 F 63 16 169/87 93 03/16/17 10:56 03/16/17 15:55 03/16/17 10:56 03/16/17 10:56 03/16/17 10:56 General appearance: Present: cooperative, A&O X 3, pleasant, no acute distress, answers questions appropriately - Head Head exam: Present: atraumatic, normal inspection, normocephalic - Eye Eye exam: Present: normal appearance, conjuntiva pink, sclera anicteric - Neck Neck exam general surgery: Present: supple, trachea midline. Absent: lymphadenopathy, tenderness - Respiratory Respiratory exam: Absent: accessory muscle use, chest wall tenderness, rales, rhonchi, wheezes - Cardiovascular Cardiovascular exam: Present: RRR, +S1, +S2. Absent: diastolic murmur, gallop, rubs, systolic murmur - GI/Abdominal GI/Abdominal exam: Present: normal bowel sounds, soft, no peritoneal signs. Absent: hepatomegaly, tenderness - Extremities Exam Extremities exam: Present: normal capillary refill, warm, radial pulses palpable and symmetrical. Absent: calf tenderness, cyanotic, pedal edema - Neurological Exam Neurological exam: Present: alert, no focal deficits. Absent: facial droop, speech deficit - Skin Skin exam: Present: dry, intact, normal color, warm. Absent: rash Internal Medicine: Result - Labs CBC & Chem 7: 03/16/17 07:47 03/16/17 10:32 Labs: Short CBC 03/16/17 Range/Units 07:47 WBC 9.3 (4.3-11.1) K/mcL Hgb 10.5 L (11.5-15.4) g/dL Hct 33.0 L (35.3-44.9) % Plt Count 213 (140-400) K/mcL Neutrophils # 6.3 (1.6-8.9) K/mcL BMP 03/16/17 10:32 Sodium 137 Potassium 4.5 Chloride 107 Carbon Dioxide 21 BUN 29 H Creatinine 1.76 H Glucose 115 H Calcium 8.5 L Consult Discharge Plan - Plan Referrals: Amber Billings CNP [Primary Care Provider] - 03/18/17 1:40 pm
--- NOTE | 2017-03-16 16:58 | Nephrology Progress Note ---
Date of Encounter: 03/16/17 Time of Encounter: 14:00 - Assessment and Plan (1) Accelerated essential hypertension Current Visit: Yes Status: Acute Likely due to renal artery stenosis, needs intervention with vascular Continue current BP regimen wth prn meds in place (2) Renal artery stenosis Current Visit: Yes Status: Chronic Per vascular surgery, intervention next week planned (3) Chronic kidney disease, stage 3 Current Visit: Yes Status: Chronic SCr slightly worse at 1.76, GFR 29 from 1.46, GFR 36 despite mucomyst and IVF Will resume IVF for now Subjective Principal diagnosis: CP Interval history: Pt seen and examined with no new complaints. BP still fluctuating from 140s- 170s systolic Objective - Vital Signs Vital signs: Vital Signs Temp Pulse Resp BP Pulse Ox 03/16/17 16:33 98.8 F 64 16 156/71 92 03/16/17 15:55 63 03/16/17 11:50 53 03/16/17 10:56 98.2 F 54 16 169/87 93 03/16/17 08:11 53 03/16/17 06:27 97.7 F 56 16 141/64 92 03/16/17 03:44 52 03/16/17 02:49 98.3 F 48 16 122/60 93 03/15/17 23:36 47 03/15/17 22:49 98.0 F 48 18 149/69 95 03/15/17 21:39 56 141/72 03/15/17 20:17 97.6 F 54 18 163/75 97 03/15/17 19:00 55 139/68 03/15/17 18:30 95 03/15/17 18:00 55 156/63 03/15/17 17:45 61 155/75 03/15/17 17:30 58 163/72 03/15/17 17:10 56 168/84 96 03/15/17 17:05 57 170/83 03/15/17 17:00 58 164/84 97 Intake and Output 03/16/17 03/16/17 03/16/17 07:59 15:59 23:59 Intake Total 450 / 450 Output Total 300 / 300 Balance 150 / 150 Intake: Oral 450 / 450 Output: Urine 300 / 300 Other: Meal Breakfast Percent of Meal Consumed 10% # Voids 1 Weight 64.28 kg Patient Weight 03/16/17 23:59 Weight 64.28 kg - General Appearance General appearance: Present: well-developed, well-nourished EENT: Present: ATNC, mucous membranes moist Neck: Present: no JVD, supple Respiratory: Present: clear Cardiology: Present: no edema, normal S1, normal S2 Gastrointestinal: Present: no tenderness, no guarding Integumentary: Present: warm and dry Neurologic: Present: no focal deficit Musculoskeletal: Present: no deformities Psychiatric: Present: mood/affect appropriate - Lab 03/18/17 05:06 03/18/17 05:06 Most recent lab results Calcium 8.5 mg/dL (8.6-10.8) L 03/16/17 10:32 Magnesium 2.0 mg/dL (1.6-2.6) 03/12/17 06:40 Urine Creatinine 56 mg/dL 03/12/17 20:10 Urine Total Protein < 7 mg/dL (1-14) 03/12/17 20:10 Consult Discharge Plan - Plan Referrals: Amber Billings CNP [Primary Care Provider] - 03/18/17 1:40 pm
[2017-03-16] MEDS: 0.9 % Sodium Chloride 1,000 ML IVC SCH (17:42)
[2017-03-16] MEDS: traZODone 50 MG TABLET PO SCH (19:39)
[2017-03-16] MEDS: diazePAM 5 MG TABLET PO SCH (19:39)
[2017-03-17 03:58] LABS: Basophils % 0.4 %; Eosinophils # 0.4 K/mcL (0.0-0.6); Eosinophils % 4.8 %; Hematocrit 29.9 % (35.3-44.9); Hemoglobin 9.7 g/dL (11.5-15.4); Immature Granulocytes % 0.4 % (0-4); Lymphocytes # 2.1 K/mcL (0.6-4.6); Lymphocytes % 24.9 %; Mean Corpuscular HGB Conc 32.4 g/dL (31.6-35.5); Mean Corpuscular Hemoglobin 29.4 pg (28.0-33.3); Mean Corpuscular Volume 90.6 fL (83.0-100.0); Mean Platelet Volume 9.3 fL (9.4-12.4); Monocytes # 0.6 K/mcL (0.0-1.3); Monocytes % 6.7 %; Neutrophils # 5.3 K/mcL (1.6-8.9); Platelet Count 205 K/mcL (140-400); Red Cell Distribution Width 13.5 % (11.5-14.5); Segmented Neutrophils % 62.8 %
[2017-03-17 04:09] LABS: Calcium 8.7 mg/dL (8.6-10.8); Potassium 4.4 mEq/L (3.5-4.5)
[2017-03-17] MEDS: *HR* Heparin 5,000 UNIT/ML VIAL SQ SCH ×2 (05:49→17:16)
[2017-03-17] MEDS: hydrALAZINE 25 MG TABLET PO SCH ×3 (07:46→20:34)
[2017-03-17] MEDS: Loratadine 10 MG TABLET PO SCH (07:46)
[2017-03-17] MEDS: Aspirin Enteric Coated 81 MG Tablet PO SCH (07:46)
[2017-03-17] MEDS: cloNIDine HCl 0.1 MG TABLET PO SCH ×3 (07:47→20:34)
[2017-03-17] MEDS: Cholecalciferol (D-3) 1,000 UNIT TABLET PO SCH (07:47)
[2017-03-17] MEDS: Venlafaxine XR (24 HR) 75 MG CAP.ER.24H PO SCH (07:47)
[2017-03-17] MEDS: amLODIPine 5 MG TABLET PO SCH (07:47)
--- NOTE | 2017-03-17 09:21 | Internal Med Progress Note ---
<Daren Perdomo - Last Filed: 03/17/17 09:17> Date of Encounter: 03/17/17 Time of Encounter: 09:21 - Assessment and plan (1) Renal artery stenosis Current Visit: Yes Status: Chronic Assessment and plan: H/o bilateral renal arteries stenosis with stents in 2011. Persistent hypertension, possibly due to thrombosis of renal arteries Vascular surgery has been consulted, appreciate Dr. Mariscal's consultation and recommendations. Nephrology is also following, appreciate Dr. Wen's recommendations and consultation. The patient had renal artery duplex that showed bilateral renal arteries are hemodynamically well maintained. Pt has been seen by vascular surgeon and will stay until Saturday or Saturday when renal angioplasty can be completed (2) Chronic kidney disease, stage 3 Current Visit: Yes Status: Chronic Assessment and plan: Stable and near baseline. Serum creatinine is 1.59, GFR 33. Continue to avoid nephrotoxins and NSAIDs. Nephrology following (3) Mixed hyperlipidemia Current Visit: No Status: Chronic Assessment and plan: Continue home medications. Cholesterol WNL, triglycerides elevated 12/2016. (4) Accelerated essential hypertension Current Visit: Yes Status: Acute Assessment and plan: Blood pressure is better controlled in the inpatient setting, remains mildly hypertensive. Will continue to monitor and adjust accordingly after assessment of renal stenosis. Plan as above for renal angioplasty. (5) COPD (chronic obstructive pulmonary disease) Current Visit: Yes Status: Chronic Assessment and plan: No acute exacerbation. Continue home medications. Encourage smoking cessation. 02 as needed to maintain sats > 92%. Pt declines nicotine patch. Qualifiers: COPD type: unspecified COPD Qualified Code(s): J44.9 - Chronic obstructive pulmonary disease, unspecified (6) Chest pain Current Visit: Yes Status: Acute Assessment and plan: No chest pain today although she is having her chronic chest "pressure. Ongoing for approximately 2 years. EKG and troponins normal. Patient has risk factors including hypertension, hyperlipidemia, smoking, and renal/vascular disease. Patient had a negative stress test in 2016. Echocardiogram in 2016 showed EF of 65%, echocardiogram this visit shows preserved EF remaining 60-65%, moderate LV DD no evidence of PFO and no significant valvular dysfunction. Continue aspirin, statin, beta paulo, Plavix. Pt had LHC 03/15, RENEE to mid LAD Continue DAPT for 1 year untinterrupted Qualifiers: Chest pain type: unspecified Qualified Code(s): R07.9 - Chest pain, unspecified (7) DVT prophylaxis Current Visit: Yes Status: Acute Assessment and plan: Heparin SQ. Encourage pt to sit in chair Patient complaining of pain in her right calf today. Venous ultrasound pending - Subjective Interval history: Patient was seen and examined at bedside. She says she is doing well this morning and just hanging out for her procedure early next week. She did mention she is having some pain in her right calf. Denies chest pain, shortness of breath or other new complaints - Constitutional Vitals: Temp Pulse Resp BP Pulse Ox 98.1 F 57 18 175/79 95 03/17/17 06:52 03/17/17 07:56 03/17/17 06:52 03/17/17 06:52 03/17/17 06:52 General appearance: Present: cooperative, A&O X 3, pleasant, no acute distress, answers questions appropriately - Respiratory Respiratory exam: Present: CTAB. Absent: accessory muscle use, rales, rhonchi, wheezes - Cardiovascular Cardiovascular exam: Present: RRR, +S1, +S2. Absent: diastolic murmur, gallop, rubs, systolic murmur - GI/Abdominal GI/Abdominal exam: Present: normal bowel sounds, soft. Absent: distended, tenderness - Extremities Exam Extremities exam: Present: calf tenderness (Right mid calf), warm, radial pulses palpable and symmetrical. Absent: cyanotic, pedal edema - Neurological Exam Neurological exam: Present: alert, oriented X3, no focal deficits Internal Medicine: Result - Labs CBC & Chem 7: 03/17/17 03:55 03/17/17 03:55 Labs: Short CBC 03/17/17 Range/Units 03:55 WBC 8.5 (4.3-11.1) K/mcL Hgb 9.7 L (11.5-15.4) g/dL Hct 29.9 L (35.3-44.9) % Plt Count 205 (140-400) K/mcL Neutrophils # 5.3 (1.6-8.9) K/mcL BMP 03/16/17 03/17/17 10:32 03:55 Sodium 137 137 Potassium 4.5 4.4 Chloride 107 108 Carbon Dioxide 21 22 BUN 29 H 32 H Creatinine 1.76 H 1.59 H Glucose 115 H 94 Calcium 8.5 L 8.7 Consult Discharge Plan - Plan Referrals: Amber Billings, FIXED ROUTE OPERATOR [Primary Care Provider] - 03/18/17 1:40 pm <Juan Naranjo - Last Filed: 03/17/17 12:20> Date of Encounter: 03/17/17 - Constitutional Vitals: Temp Pulse Resp BP Pulse Ox 98.1 F 59 18 167/81 93 03/17/17 10:36 03/17/17 10:36 03/17/17 10:36 03/17/17 10:36 03/17/17 10:36 Internal Medicine: Result - Labs CBC & Chem 7: 03/17/17 03:55 03/17/17 03:55 Labs: Short CBC 03/17/17 Range/Units 03:55 WBC 8.5 (4.3-11.1) K/mcL Hgb 9.7 L (11.5-15.4) g/dL Hct 29.9 L (35.3-44.9) % Plt Count 205 (140-400) K/mcL Neutrophils # 5.3 (1.6-8.9) K/mcL BMP 03/17/17 03:55 Sodium 137 Potassium 4.4 Chloride 108 Carbon Dioxide 22 BUN 32 H Creatinine 1.59 H Glucose 94 Calcium 8.7 - Attending Attestation I performed an independent history and physical examination of this patient. I agree with the findings, assessment and plan of Dr. Perdomo, medical receptionist medical assistant. Allergy input is appreciated. Blood pressure remains elevated. She is to have vascular procedure on Saturday or Saturday of her renal arteries. She otherwise is comfortable. No further chest pain. Continue to monitor. Patient also complains of some pain in her right calf which is new. An ultrasound has been ordered to rule out a DVT.
--- NOTE | 2017-03-17 11:23 | Nephrology Progress Note ---
Date of Encounter: 03/17/17 Time of Encounter: 12:00 - Assessment and Plan (1) Accelerated essential hypertension Current Visit: Yes Status: Acute Likely due to renal artery stenosis, needs intervention with vascular Continue current BP regimen wth prn meds in place (2) Renal artery stenosis Current Visit: Yes Status: Chronic Per vascular surgery, intervention next week planned (3) Chronic kidney disease, stage 3 Current Visit: Yes Status: Chronic SCr improved from 1.76, GFR 29 to 1.59, GFR 33 Will continue IVF for now] will need another round of mucomyst once day of vascular intervention confirmed Subjective Principal diagnosis: CP Interval history: Pt seen and examined with no new complaints. BP still fluctuating from 140s- 170s systolic Objective - Vital Signs Vital signs: Vital Signs Temp Pulse Resp BP Pulse Ox 03/17/17 10:36 98.1 F 59 18 167/81 93 03/17/17 07:56 57 03/17/17 06:52 98.1 F 56 18 175/79 95 03/17/17 04:17 97.4 F L 50 16 171/76 98 03/16/17 23:43 98.3 F 59 18 171/74 94 03/16/17 20:55 164/74 03/16/17 19:43 63 03/16/17 19:02 98.2 F 63 16 171/78 94 03/16/17 16:33 98.8 F 64 16 156/71 92 03/16/17 15:55 63 03/16/17 11:50 53 Intake and Output 03/16/17 03/17/17 03/17/17 23:59 07:59 15:59 Intake Total 632 / 632 240 / 240 Output Total 300 / 300 Balance 632 / 632 -60 / -60 Intake: IV Fluids 632 / 632 0.9 % Sodium Chloride 1,000 ML 632 / 632 @ 60 mls/hr IVC .[id number] [facility] Rx #:[id number] Oral 240 / 240 Output: Urine 300 / 300 Other: Meal Breakfast Percent of Meal Consumed 100% Weight 64.4 kg Patient Weight 03/17/17 23:59 Weight 64.4 kg - General Appearance General appearance: Present: well-developed, well-nourished EENT: Present: ATNC, mucous membranes moist Neck: Present: no JVD, supple Respiratory: Present: clear Cardiology: Present: no edema, normal S1, normal S2 Gastrointestinal: Present: no tenderness, no guarding Integumentary: Present: warm and dry Neurologic: Present: no focal deficit Musculoskeletal: Present: no deformities Psychiatric: Present: mood/affect appropriate - Lab 03/18/17 05:06 03/18/17 05:06 Most recent lab results Calcium 8.7 mg/dL (8.6-10.8) 03/17/17 03:55 Magnesium 2.0 mg/dL (1.6-2.6) 03/12/17 06:40 Urine Creatinine 56 mg/dL 03/12/17 20:10 Urine Total Protein < 7 mg/dL (1-14) 03/12/17 20:10 Consult Discharge Plan - Plan Referrals: Amber Billings CNP [Primary Care Provider] - 03/18/17 1:40 pm
[2017-03-17] MEDS: 0.9 % Sodium Chloride 1,000 ML IVC SCH (11:29)
[2017-03-17] MEDS: traZODone 50 MG TABLET PO SCH (20:34)
[2017-03-17] MEDS: diazePAM 5 MG TABLET PO SCH (20:34)
[2017-03-18] MEDS: 0.9 % Sodium Chloride 1,000 ML IVC SCH ×2 (04:40→20:30)
[2017-03-18] MEDS: Acetaminophen 325 MG TABLET PO PRN ×2 (04:49→18:43)
[2017-03-18] MEDS ORDERED: Sennosides 8.6 MG TABLET PO ONE (05:11)
[2017-03-18 05:14] LABS: Basophils # 0.1 K/mcL (0.0-0.2); Basophils % 0.6 %; Eosinophils # 0.4 K/mcL (0.0-0.6); Eosinophils % 4.5 %; Hematocrit 30.2 % (35.3-44.9); Hemoglobin 9.7 g/dL (11.5-15.4); Immature Granulocytes % 0.5 % (0-4); Lymphocytes # 2.3 K/mcL (0.6-4.6); Lymphocytes % 26.5 %; Mean Corpuscular HGB Conc 32.1 g/dL (31.6-35.5); Mean Corpuscular Hemoglobin 29.2 pg (28.0-33.3); Mean Platelet Volume 9.3 fL (9.4-12.4); Monocytes # 0.7 K/mcL (0.0-1.3); Monocytes % 7.8 %; Neutrophils # 5.1 K/mcL (1.6-8.9); Platelet Count 217 K/mcL (140-400); Red Blood Count 3.32 M/mcL (3.82-4.97); Red Cell Distribution Width 13.6 % (11.5-14.5); Segmented Neutrophils % 60.1 %
[2017-03-18 05:35] LABS: Calcium 8.9 mg/dL (8.6-10.8); Potassium 4.3 mEq/L (3.5-4.5)
[2017-03-18] MEDS: *HR* Heparin 5,000 UNIT/ML VIAL SQ SCH ×2 (06:25→18:39)
--- NOTE | 2017-03-18 06:44 | Internal Med Progress Note ---
<Daren Perdomo - Last Filed: 03/18/17 08:23> Date of Encounter: 03/18/17 Time of Encounter: 06:42 - Assessment and plan (1) Renal artery stenosis Current Visit: Yes Status: Chronic Assessment and plan: H/o bilateral renal arteries stenosis with stents in 2011. Persistent hypertension, possibly due to thrombosis of renal arteries Vascular surgery has been consulted, appreciate Dr. Mariscal/Ghassan's recommendations Renal artery duplex showed bilateral renal arteries are hemodynamically well maintained Current plan is for renal angioplasty early this week (waiting due to recent contrast administration) (2) Chronic kidney disease, stage 3 Current Visit: Yes Status: Chronic Assessment and plan: Nephrology is also following, appreciate Dr. Wen's recommendations Stable and near baseline. Serum creatinine is 1.54, eGFR 34 this morning. Continue to avoid nephrotoxins and NSAIDs. (3) Mixed hyperlipidemia Current Visit: No Status: Chronic Assessment and plan: Continue home medications. Cholesterol WNL, triglycerides elevated 12/2016. (4) Accelerated essential hypertension Current Visit: Yes Status: Acute Assessment and plan: Likely due to renal artery stenosis Systolic ranging 150 - 170a Continue current antihypertensive meds Plan as above for renal angioplasty (5) COPD (chronic obstructive pulmonary disease) Current Visit: Yes Status: Chronic Assessment and plan: Not in exacerbation. Continue home medications. Encourage smoking cessation. 02 as needed to maintain sats > 92% Pt declines nicotine patch Qualifiers: COPD type: unspecified COPD Qualified Code(s): J44.9 - Chronic obstructive pulmonary disease, unspecified (6) Chest pain Current Visit: Yes Status: Acute Assessment and plan: Chest "pressure" ongoing for approximately 2 years. EKG and troponins normal, however Pt had LHC here 03/15/17 with RENEE to mid LAD Risk factors including hypertension, hyperlipidemia, smoking, and renal/ vascular disease Patient had a negative stress test in 2016. Echocardiogram in 2016 showed EF of 65%, echocardiogram this hospitalization shows preserved EF 60-65%, moderate LV DD no evidence of PFO and no significant valvular dysfunction Continue aspirin, statin, beta paulo, Plavix Continue DAPT for 1 year untinterrupted Qualifiers: Chest pain type: unspecified Qualified Code(s): R07.9 - Chest pain, unspecified (7) DVT prophylaxis Current Visit: Yes Status: Acute Assessment and plan: Heparin SQ. Encourage pt to sit in chair Patient complaining of pain in her right calf. Venous ultrasound preliminary reading negative - Subjective Interval history: Patient was seen and examined at bedside. She says she is doing well this morning and waiting for her renal angioplasty early this week. She still complains of pain in her right calf. Says chest pressure is still present but denies pain, shortness of breath, fever/chills, diaphoresis, or other new complaints - Constitutional Vitals: Temp Pulse Resp BP Pulse Ox 97.7 F 55 16 179/80 91 03/18/17 04:43 03/18/17 04:43 03/18/17 04:43 03/18/17 04:43 03/18/17 04:43 General appearance: Present: cooperative, A&O X 3, pleasant, no acute distress, answers questions appropriately - Respiratory Respiratory exam: Present: CTAB. Absent: accessory muscle use, rales, rhonchi, wheezes - Cardiovascular Cardiovascular exam: Present: RRR, +S1, +S2. Absent: diastolic murmur, gallop, rubs, systolic murmur - GI/Abdominal GI/Abdominal exam: Present: normal bowel sounds, soft, no peritoneal signs. Absent: distended, tenderness - Extremities Exam Extremities exam: Present: calf tenderness (right mid calf), warm, radial pulses palpable and symmetrical. Absent: cyanotic, pedal edema - Neurological Exam Neurological exam: Present: alert, oriented X3, no focal deficits Internal Medicine: Result - Labs CBC & Chem 7: 03/18/17 05:06 03/18/17 05:06 Labs: Short CBC 03/18/17 Range/Units 05:06 WBC 8.5 (4.3-11.1) K/mcL Hgb 9.7 L (11.5-15.4) g/dL Hct 30.2 L (35.3-44.9) % Plt Count 217 (140-400) K/mcL Neutrophils # 5.1 (1.6-8.9) K/mcL BMP 03/18/17 05:06 Sodium 136 Potassium 4.3 Chloride 108 Carbon Dioxide 22 BUN 30 H Creatinine 1.54 H Glucose 99 Calcium 8.9 Consult Discharge Plan - Plan Referrals: Amber Billings CNP [Primary Care Provider] - 03/22/17 10:20 am Jose Manuel Jenkins MD [Partnered Physician] - 04/24/17 3:15 pm (This is in [place]) <Corbin Mancini H - Last Filed: 03/18/17 12:04> Date of Encounter: 03/18/17 - Constitutional Vitals: Temp Pulse Resp BP Pulse Ox 98.4 F 60 20 156/79 94 03/18/17 11:19 03/18/17 11:19 03/18/17 11:19 03/18/17 11:19 03/18/17 11:19 Internal Medicine: Result - Labs CBC & Chem 7: 03/18/17 05:06 03/18/17 05:06 Labs: Short CBC 03/18/17 Range/Units 05:06 WBC 8.5 (4.3-11.1) K/mcL Hgb 9.7 L (11.5-15.4) g/dL Hct 30.2 L (35.3-44.9) % Plt Count 217 (140-400) K/mcL Neutrophils # 5.1 (1.6-8.9) K/mcL BMP 03/18/17 05:06 Sodium 136 Potassium 4.3 Chloride 108 Carbon Dioxide 22 BUN 30 H Creatinine 1.54 H Glucose 99 Calcium 8.9 - Attending Attestation Accelerated hypertension likely related to renal artery stenosis Increase amlodipine from 5 up to 10 mg daily Vascular surgery recommendations appreciated for possible surgical procedure in the morning I examined this patient and my medical decision-making was reviewed with the Resident Physician. I agree with the documented findings, disposition and treatment plan as described except to the extent set forth below.
[2017-03-18] MEDS: cloNIDine HCl 0.1 MG TABLET PO SCH ×3 (07:49→20:29)
[2017-03-18] MEDS: Aspirin Enteric Coated 81 MG Tablet PO SCH (07:49)
[2017-03-18] MEDS: hydrALAZINE 25 MG TABLET PO SCH ×3 (07:49→20:29)
[2017-03-18] MEDS: amLODIPine 5 MG TABLET PO SCH (07:49)
[2017-03-18] MEDS: Cholecalciferol (D-3) 1,000 UNIT TABLET PO SCH (07:49)
[2017-03-18] MEDS: Loratadine 10 MG TABLET PO SCH (07:50)
[2017-03-18] MEDS: Venlafaxine XR (24 HR) 75 MG CAP.ER.24H PO SCH (07:50)
[2017-03-18] MEDS ORDERED: amLODIPine 5 MG TABLET PO ONE (12:15)
[2017-03-18] MEDS: SUMAtriptan succinate 50 MG TABLET PO PRN (15:36)
[2017-03-18] MEDS: diazePAM 5 MG TABLET PO SCH (20:29)
[2017-03-18] MEDS: traZODone 50 MG TABLET PO SCH (20:29)
--- NOTE | 2017-03-18 23:08 | Vascular/[facility] Progress Note ---
Date of Encounter: 03/18/17 Time of Encounter: 14:00 - Assessment and plan (1) Renal artery stenosis Current Visit: Yes Status: Chronic Her blood pressure is better controlled and her creatinine is improving. Continue with mucomyst and plan for renal angiogram with possible intervention on 03/20/17. (2) Chronic kidney disease, stage 3 Current Visit: Yes Status: Chronic Continue with IVF and mucomyst. Creatinine improved. (3) Mixed hyperlipidemia Current Visit: No Status: Chronic (4) Accelerated essential hypertension Current Visit: Yes Status: Acute Improved BP control (5) COPD (chronic obstructive pulmonary disease) Current Visit: Yes Status: Chronic Qualifiers: COPD type: unspecified COPD Qualified Code(s): J44.9 - Chronic obstructive pulmonary disease, unspecified (6) CAD (coronary artery disease) Current Visit: Yes Status: Acute Her symptoms have resolved after coronary stent placement. Qualifiers: Coronary Disease-Associated Artery/Lesion type: [place] artery [place] vs. transplanted heart: [place] heart Associated angina: with unstable angina Qualified Code(s): I25.110 - Atherosclerotic heart disease of [place] coronary artery with unstable angina pectoris - Subjective Interval history: The patient reports that she is feeling better today. She deneis any headaches or dizziness. She reports that her blood pressure has been better controlled. She denies any chest pain or shortness of breath. Vital Signs, Last 4 Hours Temp Pulse Resp BP Pulse Ox 03/18/17 20:57 98.2 F 65 17 172/83 90 - Physical Examination General: Present: Conversant, No Apparent Distress Cardiac: Present: Reg Rate and Rhythm Lungs: Present: Normal Breath Sounds, No Wheeze, Rales, Rhonchi Neuro: Present: Alert and responsive, No focal deficits noted, Motor nerves grossly intact, Sensory nerves grossly intact Vascular: Present: Normal capillary refill, Other (no hematoma). Absent: Cyanosis, Edema Abdomen: Present: Soft, Non-tender Skin: Present: No rashes noted on visualized skin Results 03/19/17 07:28 03/19/17 07:28 Consult Discharge Plan - Plan Referrals: Amber Billings CNP [Primary Care Provider] - 03/22/17 10:20 am Jose Manuel Jenkins MD [Partnered Physician] - 04/24/17 3:15 pm (This is in [place])
[2017-03-19] MEDS: SUMAtriptan succinate 50 MG TABLET PO PRN (00:18)
[2017-03-19] MEDS: Sennosides/Docusate Sodium TABLET PO PRN ×2 (05:06→13:17)
[2017-03-19] MEDS: *HR* Heparin 5,000 UNIT/ML VIAL SQ SCH ×2 (05:06→19:07)
[2017-03-19 07:47] LABS: Basophils # 0.1 K/mcL (0.0-0.2); Basophils % 0.6 %; Eosinophils # 0.4 K/mcL (0.0-0.6); Eosinophils % 4.2 %; Hematocrit 30.6 % (35.3-44.9); Hemoglobin 10.1 g/dL (11.5-15.4); Immature Granulocytes % 0.5 % (0-4); Lymphocytes # 2.1 K/mcL (0.6-4.6); Lymphocytes % 25.1 %; Mean Corpuscular Hemoglobin 29.4 pg (28.0-33.3); Mean Platelet Volume 9.4 fL (9.4-12.4); Monocytes # 0.6 K/mcL (0.0-1.3); Monocytes % 7.5 %; Neutrophils # 5.2 K/mcL (1.6-8.9); Platelet Count 243 K/mcL (140-400); Red Blood Count 3.44 M/mcL (3.82-4.97); Red Cell Distribution Width 13.7 % (11.5-14.5); Segmented Neutrophils % 62.1 %
[2017-03-19 07:52] LABS: Activated Partial Thrombo Time 37.8 Seconds (26.0-36.0)
[2017-03-19 08:06] LABS: Potassium 4.5 mEq/L (3.5-4.5)
[2017-03-19] MEDS: Aspirin Enteric Coated 81 MG Tablet PO SCH (08:50)
[2017-03-19] MEDS: Venlafaxine XR (24 HR) 75 MG CAP.ER.24H PO SCH (08:50)
[2017-03-19] MEDS: cloNIDine HCl 0.1 MG TABLET PO SCH ×3 (08:50→20:09)
[2017-03-19] MEDS: hydrALAZINE 25 MG TABLET PO SCH ×3 (08:50→20:09)
[2017-03-19] MEDS: Cholecalciferol (D-3) 1,000 UNIT TABLET PO SCH (08:51)
[2017-03-19] MEDS: Loratadine 10 MG TABLET PO SCH (08:51)
[2017-03-19] MEDS: amLODIPine 5 MG TABLET PO SCH (08:51)
--- NOTE | 2017-03-19 11:56 | Internal Med Progress Note ---
Date of Encounter: 03/19/17 Time of Encounter: 11:49 - Assessment and plan (1) Renal artery stenosis Current Visit: Yes Status: Chronic Assessment and plan: Current Visit: Yes Status: Chronic Assessment and plan: H/o bilateral renal arteries stenosis with stents in 2011. Persistent hypertension, possibly due to thrombosis of renal arteries Vascular surgery has been consulted, Dr. Mariscal to perform renal angiogram in the morning Renal artery duplex showed bilateral renal arteries are hemodynamically well maintained Mucomyst (2) Chronic kidney disease, stage 3 Current Visit: Yes Status: Chronic Assessment and plan: Nephrology also following, Stable and near baseline. Serum creatinine is 1.54, eGFR 34 this morning. Continue to avoid nephrotoxins and NSAIDs. (3) Mixed hyperlipidemia Current Visit: No Status: Chronic Assessment and plan: Continue home medications. Cholesterol WNL, triglycerides elevated 12/2016. (4) Accelerated essential hypertension Current Visit: Yes Status: Acute Assessment and plan: Likely due to renal artery stenosis Systolic ranging 150 - 170a Continue hydralazine, clonidine increased amlodipine to 10 mg daily Plan as above for renal angioplasty (5) COPD (chronic obstructive pulmonary disease) Current Visit: Yes Status: Chronic Assessment and plan: Not in exacerbation. Continue home medications. Encourage smoking cessation. 02 as needed to maintain sats > 92% Pt declines nicotine patch Qualifiers: COPD type: unspecified COPD Qualified Code(s): J44.9 - Chronic obstructive pulmonary disease, unspecified (6) CAD Current Visit: Yes Status: Acute Assessment and plan: had C here 03/15/17 with RENEE to mid LAD Patient had a negative stress test in 2016. Echocardiogram in 2016 showed EF of 65%, echocardiogram this hospitalization shows preserved EF 60-65%, moderate LV DD no evidence of PFO and no significant valvular dysfunction Continue aspirin, statin, beta paulo, Plavix Continue DAPT for 1 year untinterrupted Qualifiers: Chest pain type: unspecified Qualified Code(s): R07.9 - Chest pain, unspecified - Subjective Interval history: no complaints today, no CP or SOB, no abdominal pain , no fever, no dysuria - Constitutional Vitals: Temp Pulse Resp BP Pulse Ox 97.8 F 58 15 141/61 94 03/19/17 10:50 03/19/17 10:50 03/19/17 10:50 03/19/17 10:50 03/19/17 10:50 General appearance: Present: cooperative, A&O X 3, pleasant, no acute distress, answers questions appropriately - Head Head exam: Present: atraumatic, normocephalic - Eye Eye exam: Present: PERRL, conjuntiva pink, sclera anicteric Pupils: Present: PERRL - Neck Neck exam general surgery: Present: supple, trachea midline. Absent: lymphadenopathy - Respiratory Respiratory exam: Present: CTAB. Absent: accessory muscle use, rales, rhonchi, wheezes - Cardiovascular Cardiovascular exam: Present: RRR, +S1, +S2. Absent: diastolic murmur, gallop, rubs, systolic murmur - GI/Abdominal GI/Abdominal exam: Present: normal bowel sounds, soft, no peritoneal signs. Absent: distended, tenderness - Extremities Exam Extremities exam: Present: warm, radial pulses palpable and symmetrical. Absent : calf tenderness, cyanotic, pedal edema - Neurological Exam Neurological exam: Present: CN II-XII intact, oriented X3, no focal deficits. Absent: pronater drift, facial droop, speech deficit - Skin Skin exam: Present: dry, intact Internal Medicine: Result - Labs CBC & Chem 7: 03/19/17 07:28 03/19/17 07:28 Labs: Short CBC 03/19/17 Range/Units 07:28 WBC 8.4 (4.3-11.1) K/mcL Hgb 10.1 L (11.5-15.4) g/dL Hct 30.6 L (35.3-44.9) % Plt Count 243 (140-400) K/mcL Neutrophils # 5.2 (1.6-8.9) K/mcL BMP 03/19/17 07:28 Sodium 139 Potassium 4.5 Chloride 111 H Carbon Dioxide 22 BUN 27 H Creatinine 1.51 H Glucose 97 Calcium 9.0 - ABG Interpretation ABG results: PT/INR, D-dimer PT 11.0 Seconds (9.4-12.1) 03/19/17 07:28 Consult Discharge Plan - Plan Referrals: Amber Billings CNP [Primary Care Provider] - 03/22/17 10:20 am Jose Manuel Jenkins MD [Partnered Physician] - 04/24/17 3:15 pm (This is in [place])
[2017-03-19] MEDS: 0.9 % Sodium Chloride 1,000 ML IVC SCH ×2 (13:22→19:08)
--- NOTE | 2017-03-19 17:18 | Vascular/[facility] Progress Note ---
Date of Encounter: 03/19/17 Time of Encounter: 13:10 - Assessment and plan (1) Renal artery stenosis Status: Chronic The patient appears to have relative blood pressure control. She is scheduled for a renal angiogram with possible intervention tomorrow. The risks,benefits and alternatives were discussed and all questions were answered. She expressed understanding and wishes to proceed. (2) Chronic kidney disease, stage 3 Status: Chronic Continue with intravenous fluids and mucomyst for renal protection. (3) Mixed hyperlipidemia Status: Chronic She was counseled regarding risk factor reduction. (4) Accelerated essential hypertension Status: Acute Improved BP control (5) COPD (chronic obstructive pulmonary disease) Status: Chronic Qualifiers: COPD type: unspecified COPD Qualified Code(s): J44.9 - Chronic obstructive pulmonary disease, unspecified (6) CAD (coronary artery disease) Status: Acute No chest pain or shortness of breath. Qualifiers: Coronary Disease-Associated Artery/Lesion type: [place] artery [place] vs. transplanted heart: [place] heart Associated angina: with unstable angina Qualified Code(s): I25.110 - Atherosclerotic heart disease of [place] coronary artery with unstable angina pectoris - Subjective Interval history: The patient reports no acute issues overnight. She is feeling well today. She denies headaches. She denies any chest pain or shortness of breath. Vital Signs, Last 4 Hours Temp Pulse Resp BP Pulse Ox 03/19/17 16:00 98.2 F 60 14 135/58 96 - Physical Examination General: Present: Conversant, No Apparent Distress Cardiac: Present: Reg Rate and Rhythm Lungs: Present: Normal Breath Sounds Neuro: Present: Alert and responsive, No focal deficits noted, Motor nerves grossly intact, Sensory nerves grossly intact Vascular: Present: Normal capillary refill. Absent: Cyanosis, Edema Abdomen: Present: Soft, Non-tender Skin: Present: No rashes noted on visualized skin Results 03/19/17 07:28 03/19/17 07:28 Lab Results, Last 24 hours 03/19/17 03/19/17 03/19/17 07:28 07:28 07:28 WBC 8.4 Hgb 10.1 L Hct 30.6 L Plt Count 243 INR 1.0 APTT 37.8 H Sodium 139 Potassium 4.5 Chloride 111 H Carbon Dioxide 22 BUN 27 H Creatinine 1.51 H Glucose 97 Calcium 9.0 Consult Discharge Plan - Plan Instructions: Amlodipine (By mouth), Peripheral Vascular Disorders (DC), Chronic Hypertension (DC) Additional Instructions: Follow-up with primary care provider in the next 3-5 days Follow-up with vascular surgery as recommended. Follow up with nephrology Take medications as prescribed - Monitor blood pressure daily Start amlodipine 10 mg daily Referrals: Amber Billings CNP [Primary Care Provider] - 03/22/17 10:20 am Juan Mariscal MD [Partnered Physician] - 04/23/17 2:30 pm Jose Manuel Jenkins MD [Partnered Physician] - 04/24/17 3:15 pm (This is in [place]) Prescriptions: amLODIPine [Norvasc] 10 mg PO DAILY #30 tablet Tamsulosin [Flomax] 0.4 mg PO DAILY #30 cap.er.24h
[2017-03-19] MEDS: traZODone 50 MG TABLET PO SCH (20:09)
[2017-03-19] MEDS: diazePAM 5 MG TABLET PO SCH (20:09)
[2017-03-19] MEDS: *HR* Acetylcysteine 20% 600 MG/3 ML ORAL SYRINGE PO SCH (20:09)
[2017-03-20] MEDS: *HR* Heparin 5,000 UNIT/ML VIAL SQ SCH (06:22)
[2017-03-20] MEDS ORDERED: 0.9 % Sodium Chloride 1,000 ML ONE ×2 (06:41→07:36)
[2017-03-20] MEDS ORDERED: Heparin 1,000 UNITS/500 mL NS 500 ML ONE (06:41)
[2017-03-20] MEDS ORDERED: *HR* Heparin 10,000 UNIT/10 ML VIAL ONE (06:41)
--- NOTE | 2017-03-20 07:43 | Pre-Sedation Evaluation ---
Pre-sedation evaluation - Pre-sedation checklist Date of procedure: 03/20/17 Procedure: Renal Artery Angiogram Recent Vitals: Last Vital Signs Temp 97.8 F 03/20/17 03:42 Pulse 56 03/20/17 03:42 Resp 16 03/20/17 03:42 BP 150/66 03/20/17 03:42 Pulse Ox 92 03/20/17 03:42 H&P (including ROS) documented in medical record: Yes Previous reaction to sedatives/anesthetics: No Dietary Status: NPO after Midnight Dentition: No loose teeth or bridges ASA Classification *see protocol: CLASS III-Severe systemic disease Plan of Care: Pt appropriate candidate for procedure/moderate/conscious sedation , Risks/benefits of procedure/sedation discussed w/ patient/family
[2017-03-20] MEDS ORDERED: *HR* Midazolam HCl 2 MG/2 ML VIAL ONE (07:46)
[2017-03-20] MEDS ORDERED: Heparin 1,000 UNIT, 0.9 % Sodium Chloride 500 ML INARTERIAL ONE (08:00)
--- NOTE | 2017-03-20 09:02 | Procedure Note ---
Date of procedure: 03/20/17 Pre-op diagnosis: Renal artery stenosis, hypertension, chronic kidney disease Post-op diagnosis: same Procedure: Bilateral renal artery angiogram with bilateral renal artery angioplasty with 4 x 20mm balloon. 4 estonian sheath, direct pressure for hemostasis. Anesthesia: local, IV sedation (moderate conscious sedation) Surgeon: Juan Mariscal Estimated blood loss (cc): 1 Pathology: none sent Condition: stable (no complications) Disposition: floor
--- NOTE | 2017-03-20 09:17 | Invasive Diagnostic Lab Proc ---
Name: Rena Gambino Date of Study: 03/20/2017 Date: 1955 Ht: 152.4 in Medical Record#: [id number] Age: 61 Wt: 58.17532 lb Gender: Female BSA: 1.55 Order #: [id number] BMI: 25.39 Physicians Performing MD: uJan Mariscal MD Referring MD: Referring MD: Staff Name Position Time In Audra Stein RN Monitor Petrona Morse RN Telephone Surveyor Gene Vitale RT (R) Scrub Indications Renal Artery Stenosis Procedures Performed AORTOGRAPHY, ABDOMINAL S&I INS CATH DAKSHA ART 1ST BILAT TRLUML BALO ANGIOP ADDL ART TRLUML BALO ANGIOP 1ST ART Pre-Procedure Checklist Informed consent is complete signed and on chart. H&P is on chart. ID band is on and ID verified with patient. Patient NPO for procedure The procedure was described for the patient and questions were answered. Blood Pressure: 183/78 ECG is on chart. Rhythm: NSR Plan of Care Patient will tolerate the procedure without complications. Adequate level of comfort will be maintained. Hemodynamics will remain stable Patient will recover from procedure without complications. Respiratory function will be maintained. Cardiac rhythm will remain stable. Patient temperature will be maintained. Patient and/or family have verbalized understanding of the procedure. Patient Education Chief Complaint/Reason for Test: Peripheral angiogram Developmental Category: Geriatric (65+ years) Learning Barriers: None Education Needs: Procedure Education Method: Verbal Information Taught: Renal angiogram Educational Evaluation: Able to repeat information Intravenous Access Time IV Size Location DC'd Fluid/Drip Rate Units RN 08:00 PICC Line Rt Arm 0.9NaCl 100 ml/hr Petrona Morse RN Allergies diphenhydramine cephalexin sulfamethoxazole trimethoprim Iodinated Contrast- Oral and IV Dye Penicillins NSAIDS (Non-Steroidal Anti-Inflamma Vital Signs Time BP Systolic BP Diastolic HR O2 Sats ASA 07:37 AM 07:37 AM 07:52 AM 08:07 AM 08:22 AM 07:44 AM 183 78 103 94 07:48 AM 176 74 53 96 07:53 AM 181 79 54 96 07:58 AM 176 78 56 96 08:03 AM 178 75 57 95 08:08 AM 181 83 56 96 08:13 AM 175 82 59 96 08:17 AM 174 76 56 95 08:18 AM 177 78 56 96 08:23 AM 187 80 56 96 08:29 AM 189 85 57 95 08:34 AM 193 83 57 95 08:39 AM 198 83 60 97 08:44 AM 187 82 59 97 Procedure Medications Time Medication Dose Units Method Route 07:36 AM Oxygen 2 L/min nasal cannula 07:47 AM Versed 1 mg Intravenous 07:52 AM Lidocaine 2% 6 ml Subcutaneous 07:56 AM Lidocaine 2% 10 ml Subcutaneous 08:06 AM Heparin 3000 units Intra-arterial 08:42 AM Hydralazine 10 mg Intravenous ASA Classification: CLASS III- Severe systemic disease (i.e. prior AMI, diabetes with vascular complications, morbid obesity) Rufus Score Preprocedure Postprocedure Activity 2- Moves 4 extremities sustained head lift Activity 2- Moves 4 extremities sustained head lift Circulation 2- SBP +/= 20 points of pre-anesthetic level Circulation 2- SBP +/= 20 points of pre-anesthetic level Consciousness 2- Awake and alert oriented x 3 Consciousness 2- Awake and alert oriented x 3 O2 Saturation 2- Able to maintain O2 satruation of 92% on room air O2 Saturation 2- Able to maintain O2 satruation of 92% on room air Respiratory 2- Able to deep breathe and cough well Respiratory 2- Able to deep breathe and cough well Total Score 10 Total Score 10 Contrast: Isovue 300- 150ml Contrast Amount: 27 ml Fluoro Dose: 1291 mGy Activated Clotting Time Time Drawn ACT (sec) 08:52 AM 191 Procedure Log Time Note Entered By 07:35 AM Pt arrived to labourers 1 at 07:35 [email or web address] 07:35 AM Audra Stein RN Position: Monitor Time in: 07:35 [email or web address] 07:35 AM Petrona Morse RN Position: Telephone Surveyor Time in: 07:35 [email or web address] 07:35 AM Gene Vitale RT (R) Position: Scrub Time in: 07:35 [email or web address] 07:35 AM Case delayed: No [email or web address] 07:30 AM Physician paged/called 07:35 [email or web address] 07:32 AM Physican responded and notified patient is ready 07:32 [email or web address] 07:37 AM 07:36 Oxygen at 2 L/min per nasal cannula by Petrona Morse RN 07:37 AM Time: 07:37 Is patient comfortable and pain free?: Yes [email or web address] 07:37 AM Time: 07:37LOC: 5 = Fully awake and oriented or at pre-proc level [email or web address] 07:43 AM Physician arrived 07:40 [email or web address] 07:43 AM ASA Class CLASS III- Severe systemic disease (i.e. prior AMI, diabetes with vascular complications, morbid obesity) [email or web address] 07:43 AM Andrei and shaan completed [email or web address] 07:43 AM Sign in performed according to hospital policy. [email or web address] 07:43 AM Procedure start 07:43 [email or web address] 07:51 AM Time out perfomed [email or web address] 07:47 AM 07:47 Versed 1 mg Intravenous Given by Petrona Morse RN [email or web address] 07:52 AM Time: 07:37 Is patient comfortable and pain free?: Yes [email or web address] 07:52 AM Time: 07:37LOC: 4 = Oriented but drowsy [email or web address] 07:53 AM 07:52 6 ml Lidocaine 2% to right groin Subcutaneous Given By MD brittny [email or web address] 07:56 AM Patient charges- Angio tray pack, Pulse Oximetry and ACIST tubing and transducer [email or web address] 07:56 AM Micro-Introducer kit utilized for sheath placement [email or web address] 07:56 AM Ultrasound, Sonosite, utilized to obtain vascular access [email or web address] 07:56 AM Access obtained in the right femoral artery by percutaneous puncture. 4 Fr. 10 cm Micro-Introducer sheath placed in right femoral artery [email or web address] 07:56 AM Sheath exchanged for a 4 Fr 10 cm Terumo Destination sheath inserted into right femoral artery [email or web address] 07:56 AM 0.035 180cm Bentson wire utilized to assist with catheter placement [email or web address] 07:57 AM 07:56 10 ml Lidocaine 2% to right groin Subcutaneous Given By MD brittny [email or web address] 07:57 AM 4Fr Omniflush catheter inserted over the wire [email or web address] 07:58 AM Wire removed [email or web address] 07:59 AM Renal angiography performed in multiple views contrast injected 20/10 mls. [email or web address] 08:01 AM Catheter removed [email or web address] 08:01 AM 4Fr 80cm SOS Omni Selective guide catheter advanced [email or web address] 08:03 AM 4cc contrast hand injected [email or web address] 08:03 AM 0.014 [address] 190cm guidewire advanced. [email or web address] 08:05 AM Inflation device [email or web address] 08:06 AM 4 mm x 20 mm Rupert balloon catheter placed into right renal [email or web address] 08:06 AM 08:06 Heparin 3000 units Intra-arterial by Juan Mariscal MD [email or web address] 08:07 AM Time: 07:52 Is patient comfortable and pain free?: Yes [email or web address] 08:07 AM Time: 07:52LOC: 5 = Fully awake and oriented or at pre-proc level [email or web address] 08:08 AM Balloon inflated @ 6 jamar for 18 seconds [email or web address] 08:09 AM Balloon inflated @ 10 jamar for 60 seconds [email or web address] 08:12 AM Balloon inflated @ 12 jamar for 35 seconds [email or web address] 08:16 AM Guide wire removed intact [email or web address] 08:17 AM 3cc contrast hand injected [email or web address] 08:18 AM 4cc contrast hand injected [email or web address] 08:22 AM Time: 08:07 Is patient comfortable and pain free?: Yes [email or web address] 08:22 AM Time: 08:07LOC: 4 = Oriented but drowsy [email or web address] 08:25 AM Guide wire removed intact [email or web address] 08:26 AM 0.035 Glidewire Angled 180cm guidewire advanced. [email or web address] 08:30 AM 3cc contrast hand injected [email or web address] 08:32 AM Guide catheter removed intact [email or web address] 08:33 AM 4 mm x 20 mm Andry balloon catheter placed into left renal [email or web address] 08:36 AM Balloon inflated @ 14 jamar for 46 seconds [email or web address] 08:36 AM Balloon inflated @ 6 jamar for 14 seconds [email or web address] 08:37 AM Balloon inflated @ 6 jamar for 30 seconds [email or web address] 08:37 AM Time: 08:22LOC: 5 = Fully awake and oriented or at pre-proc level [email or web address] 08:37 AM Time: 08:22 Is patient comfortable and pain free?: Yes [email or web address] 08:37 AM SOS Omni reinserted [email or web address] 08:39 AM 4cc contrast hand injected [email or web address] 08:39 AM Guide catheter removed intact [email or web address] 08:40 AM Omni flush reinserted [email or web address] 08:40 AM Bentson wire removed [email or web address] 08:40 AM Abdominal aorta angiography performed in AP contrast injected 20/10 mls. [email or web address] 08:43 AM Time: 08:42 Hydralazine 10 mg Intravenous Given by Petrona Morse RN [email or web address] 08:45 AM Procedure completed at 08:45 [email or web address] 08:45 AM Sign Out completed: Radiation Dose 1291.2 mGy Fluoro Time: 18.6 minutes. Isovue 300- 150ml contrast 27 ml given by Juan Mariscal MD. Complications: None. Confirmed administered medications:Yes [email or web address] 07:09 AM PVIStat 07:09 AM Case Start 07:43 AM Vitals capture started with the following parameters, Patient=Adult, Interval=5 min, Initial Wwhbsbba=071 mmHg, Deflation Rate=5 mmHg, Cuff placed on Left Arm 07:44 AM NM=732 bpm, FKHE=270/78 mmhg, SpO2=94.0 %, Resp=16 B/min, Comment=SR 07:45 AM Recorded ECG: HR=55 Condition=Condition 1 07:48 AM HR=53 bpm, HPPP=749/74 mmhg, SpO2=96.0 %, Resp=17 B/min, Comment=SR 07:53 AM HR=54 bpm, TFCX=384/79 mmhg, SpO2=96.0 %, Resp=16 B/min, Comment=SR 07:58 AM HR=56 bpm, UYZA=070/78 mmhg, SpO2=96.0 %, Resp=18 B/min, Comment=SR 08:03 AM HR=57 bpm, TJYG=469/75 mmhg, SpO2=95.0 %, Resp=19 B/min, Comment=SR 08:08 AM HR=56 bpm, QBTA=245/83 mmhg, SpO2=96.0 %, Resp=18 B/min, Comment=SR 08:13 AM HR=59 bpm, PPLG=146/82 mmhg, SpO2=96.0 %, Resp=16 B/min, Comment=SR 08:16 AM NIBP STAT measurement started. 08:17 AM HR=56 bpm, KLKM=089/76 mmhg, SpO2=95.0 %, Resp=18 B/min, Comment=SR 08:18 AM HR=56 bpm, VXAS=735/78 mmhg, SpO2=96.0 %, Resp=19 B/min, Comment=SR 08:23 AM HR=56 bpm, BMSQ=862/80 mmhg, SpO2=96.0 %, Resp=19 B/min, Comment=SR 08:29 AM HR=57 bpm, LQWT=334/85 mmhg, SpO2=95.0 %, Resp=15 B/min, Comment=SR 08:34 AM HR=57 bpm, FKTU=203/83 mmhg, SpO2=95.0 %, Resp=24 B/min, Comment=SR 08:39 AM HR=60 bpm, BAZA=770/83 mmhg, SpO2=97 %, Resp=24 B/min 08:44 AM HR=59 bpm, HRIZ=225/82 mmhg, SpO2=97.0 %, Resp=18 B/min 08:48 AM Isovue 300- 150ml,1 bottle(s) used. [email or web address] 08:48 AM Post Blood Pressure: 187/82 [email or web address] 08:48 AM Post EKG: NSR [email or web address] 08:49 AM 08:49 Post Pulses: Bilateral DP 1+. [email or web address] 08:49 AM Information taught: Renal angiogram and MOLDER BENCH [email or web address] 08:49 AM Education needs: Procedure, Plan of Care, and Responsibilities of Patient in Care [email or web address] 08:49 AM Learning barriers: None [email or web address] 08:49 AM Education methods: Verbal [email or web address] 08:49 AM Education evaluation: Able to repeat information [email or web address] 08:49 AM Patient pain level 0/10 [email or web address] 08:50 AM Site status No bleeding/hematoma - Rt Groin as reported by Gene Vitale RT (R) at 08:49 [email or web address] 08:51 AM no family present at this time [email or web address] 08:52 AM ACT: 191 seconds 08:52 [email or web address] 08:52 AM Opsite applied [email or web address] 09:05 AM sheath will be pulled by laboratory phlebotomist staff on 2N [email or web address] 09:05 AM Report given to Taylor MCCLENDON Pt taken to , Room # 2 09:05 [email or web address] 09:09 AM Patient out of room 09:09 [email or web address] Post Procedure Information Blood Pressure: 187/82 mmHg Rhythm: NSR Post procedure instructions given Report Given To: Silva Site Checks Time Location Status Staff Sheath In? Note 8:49:00 AM Rt Groin No bleeding/ No Hematoma Gene Vitale RT (R) Pulses Time Site Pre Procedure Post Procedure Note 03/20/2017 7:14:00 AM Bilateral DP & PT 1+ 03/20/2017 7:14:00 AM Bilateral radial 2+ 8:49:00 AM Bilateral DP 1+ Updated by Audra Stein RN on 03/20/2017 9:09:40 AM electronically signed on 03/20/2017 9:10:36 AM with status of Final
[2017-03-20] MEDS ORDERED: *HR* OxyCODONE/APAP 5/325 TABLET PO PRN (10:06)
[2017-03-20] MEDS ORDERED: *HR* HYDROcodone/Acet 5/325 mg TABLET PO PRN (10:06)
[2017-03-20 10:45] VITALS: BP 170/93
[2017-03-20] MEDS: amLODIPine 5 MG TABLET PO SCH (10:55)
[2017-03-20] MEDS: *HR* Acetylcysteine 20% 600 MG/3 ML ORAL SYRINGE PO SCH (10:55)
[2017-03-20] MEDS: hydrALAZINE 25 MG TABLET PO SCH ×2 (10:55→14:39)
[2017-03-20] MEDS: cloNIDine HCl 0.1 MG TABLET PO SCH ×2 (10:56→14:39)
[2017-03-20] MEDS: Cholecalciferol (D-3) 1,000 UNIT TABLET PO SCH (10:56)
[2017-03-20] MEDS: Venlafaxine XR (24 HR) 75 MG CAP.ER.24H PO SCH (10:56)
[2017-03-20] MEDS: Aspirin Enteric Coated 81 MG Tablet PO SCH (10:56)
[2017-03-20] MEDS: Loratadine 10 MG TABLET PO SCH (10:56)
--- NOTE | 2017-03-20 11:03 | Discharge Summary ---
<Carlos Enrique Rider - Last Filed: 03/20/17 11:35> Date of Encounter: 03/20/17 Time of Encounter: 10:59 - Discharge Diagnosis (1) Renal artery stenosis Priority: Primary Status: Chronic (2) Chronic kidney disease, stage 3 Priority: Secondary Status: Chronic (3) Mixed hyperlipidemia Priority: Secondary Status: Chronic (4) Accelerated essential hypertension Priority: Primary Status: Acute (5) COPD (chronic obstructive pulmonary disease) Priority: Secondary Status: Chronic Qualifiers: COPD type: unspecified COPD Qualified Code(s): J44.9 - Chronic obstructive pulmonary disease, unspecified (6) CAD (coronary artery disease) Priority: Primary Status: Acute Qualifiers: Coronary Disease-Associated Artery/Lesion type: [place] artery [place] vs. transplanted heart: [place] heart Associated angina: with unstable angina Qualified Code(s): I25.110 - Atherosclerotic heart disease of [place] coronary artery with unstable angina pectoris - Discharge Medications Prescriptions: amLODIPine [Norvasc] 10 mg PO DAILY #30 tablet Home Medications: Albuterol Sulfate [Albuterol Inhaler] 2 puff IH Q4HR PRN 02/15/15 [History] Atorvastatin [Lipitor] 40 mg PO HS 02/15/15 [History] Clopidogrel [Plavix] 75 mg PO HS 02/15/15 [History] Ipratropium/Albuterol Neb [Duoneb] 3 ml IH Q6HR PRN 02/15/15 [History] Levothyroxine [Synthroid] 75 mcg PO DAILY 02/15/15 [History] SUMAtriptan [Imitrex] 50 mg PO Q2H PRN 02/15/15 [History] TraZODone 200 mg PO HS 02/15/15 [History] diazePAM [Valium] 5 mg PO HS 02/15/15 [History] Acetaminophen [Tylenol] 1,000 mg PO Q6HR PRN #0 tablet 05/09/16 [Rx] Carvedilol [Coreg] 25 mg PO DAILY 05/09/16 [History] Cetirizine HCl [Zyrtec] 10 mg PO DAILY 05/09/16 [History] Cholecalciferol (Vitamin D3) [Vitamin D3] 1,000 unit PO DAILY 05/09/16 [History] CloNIDine HCl [Kapvay] 0.2 mg PO TID 05/09/16 [History] Oxybutynin Chloride [Ditropan Xl] 10 mg PO DAILY 05/09/16 [History] Desvenlafaxine Succinate [Pristiq] 50 mg PO DAILY 12/10/16 [History] Hydralazine HCl 50 mg PO TID 12/10/16 [History] Ipratropium Sullivan 2 spr NS BID 12/10/16 [History] Montelukast [Singulair] 10 mg PO DAILY 12/10/16 [History] Aspirin [Lo-Dose Aspirin EC] 81 mg PO DAILY 03/12/17 [History] amLODIPine [Norvasc] 10 mg PO DAILY #30 tablet 03/20/17 [Rx] Allergies/Adverse Reactions: 3 Allergy/AdvReac Type Severity Reaction Status Date / Time cephalexin [From Keflex] Allergy Severe Swelling Verified 12/10/16 06:19 of Lip/Tongue/Throat Penicillins [PCN] Allergy Severe Swelling Verified 12/10/16 06:19 of Lip/Tongue/Throat sulfamethoxazole Allergy Severe Swelling Verified 12/10/16 06:19 [From Bactrim] of Lip/Tongue/Throat trimethoprim [From Bactrim] Allergy Severe Swelling Verified 12/10/16 06:19 of Lip/Tongue/Throat diphenhydramine Allergy Mild Irritable Verified 12/10/16 06:19 [From Benadryl] gentamicin Allergy See Verified 12/10/16 06:19 Comments Iodinated Contrast- Oral and Allergy See Verified 12/10/16 06:19 IV Dye Comments nitrofurantoin Allergy See Verified 12/10/16 06:19 Comments NSAIDS (Non-Steroidal Allergy See Verified 12/10/16 06:19 Anti-Inflamma Comments vancomycin Allergy See Verified 12/10/16 06:19 Comments Procedures/tests Complete & Pending: Procedures Performed prior 72 hours Category Date Time Status CL Peripheral Angiography [CL] Routine Risk Control Manager 03/20/17 07:06 Ordered Date of admission: 03/12/17 14:48 Primary care physician: Amber Billings CNP Consults: 03/12/17 15:37 Consult to Nephrology [CONS] Routine Consulting Provider: Kidney [facility]ara/ORIMI/WHIT/LIVAN Reason for Consult: HTN urgency Time Notified: 15:38 Call Completed: Yes 03/13/17 13:47 Consult to Cardiology [CONS] Routine Comment: Consulting Provider: Cardiology [place] Reason for Consult: chest pain with multiple risk factors. No previous [facility] Call Completed: Yes 03/14/17 15:04 Consult to Vascular Surgery [CONS] Routine Consulting Provider: Vascular Surgery [facility] Reason for Consult: ALLI with uncontrolled BP Call Completed: Yes 03/15/17 14:05 Consult to Invasive Line Access Team [CONS] Routine Reason for Consult: limited vascular accesss Line Type: EPIV Discharging clinician: Carlos Enrique Rider Anticipated date of discharge: 03/20/17 - Patient Status Disposition: Home, Self-Care Condition: Fair Functional capacity at discharge: independent ambulation Overall status at discharge: patient is progressing back to baseline - Discharge Instructions Instructions: Peripheral Vascular Disorders (DC), Chronic Hypertension (DC) Follow Up With: Amber Billings CNP [Primary Care Provider] - 03/22/17 10:20 am Juan Mariscal MD [Partnered Physician] - 04/23/17 2:30 pm Jose Manuel Jenkins MD [Partnered Physician] - 04/24/17 3:15 pm (This is in [place]) Additional Instructions: Follow-up with primary care provider in the next 3-5 days Follow-up with vascular surgery as recommended. Follow up with nephrology Take medications as prescribed - Monitor blood pressure daily Start amlodipine 10 mg daily - Diet and Activity Activity: other (No strenuous activity for 5 days, follow up with primary care provider evaluation of catheter site prior to increasing activity.) Diet: low fat, low cholesterol, low salt diet Interval History: Ms. Gambino is a 61 year old female past medical history of COPD CAD CVA hyperlipidemia hypertension renal artery stenosis with stents and carotid stenosis status post CEA history of trigeminy/bigeminy. She presented to the emergency department with rising blood pressure is with a blood pressure around 227/102 at the time of evaluation complaining of right-sided chest pain. She was provided labetalol IV which improved her blood pressure in the emergency department. EKG demonstrated sinus tachycardia with occasional PVCs. Laboratory results demonstrate slight elevation in creatinine and mild hyponatremia after which she was admitted. For treatment of her accelerated hypertension she started to have resolution of her symptoms including chest pain headache, denies any visual issues. Nephrology was consult did and cardiology was consult. Doppler of renal arteries was ordered for further evaluation. Cardiology evaluated the patient and given her multiple risk factors for CAD including hypertension hyperlipidemia, prediabetes, tobacco abuse, family history and vascular history and evaluation of her laboratory results, troponins negative 4 they did recommend left heart catheterization. She was optimized on cardiac medications including aspirin, statin, beta paulo , loading dose of Plavix. Retroperitoneal ultrasound demonstrated no hydronephrosis, echogenic appearance of the kidneys bilateral, right kidney cyst. Renal artery duplex demonstrated bilateral renal arteries are hemodynamically well maintained. Pt had LHC 03/15, RENEE to mid LAD. Vascular surgery was consult that as the patient has a long history of renal arterial stenosis, elevating blood pressures. Renal angigoraphy reveals that the right renal artery stent is patent, however high grade ostial stenosis appears to be present proximal to the stent. A similar ostial high grade stenosis appears to be present in the left renal artery. She remained stable throughout her inpatient stay with maintenance of her blood pressure. On 03/20/2017 she underwent bilateral renal artery angiogram with bilateral renal artery angioplasty with 4 x 20 mm balloon. She tolerated the procedure well and without complication. Hospital course: Ms. Gambino is a 61 year old female - Time Spent with Patient Total time spent providing and/or coordinating discharge services: - Constitutional Vitals: Temp Pulse Resp BP Pulse Ox 98.0 F 64 16 170/93 92 03/20/17 10:30 03/20/17 10:30 03/20/17 10:30 03/20/17 10:30 03/20/17 10:30 General appearance: Present: cooperative, A&O X 3, pleasant, no acute distress, answers questions appropriately - Head Head exam: Present: atraumatic, normocephalic - Eye Eye exam: Present: PERRL, conjuntiva pink, sclera anicteric Pupils: Present: PERRL - Neck Neck exam general surgery: Present: supple, trachea midline. Absent: lymphadenopathy - Respiratory Respiratory exam: Present: CTAB. Absent: accessory muscle use, rales, rhonchi, wheezes - Cardiovascular Cardiovascular exam: Present: RRR, +S1, +S2. Absent: diastolic murmur, gallop, rubs, systolic murmur - GI/Abdominal GI/Abdominal exam: Present: normal bowel sounds, soft, no peritoneal signs. Absent: distended, tenderness - Extremities Exam Extremities exam: Present: warm, radial pulses palpable and symmetrical. Absent : calf tenderness, cyanotic, pedal edema Additional comments: Groin site secondary to Procedure, no significant drainage. - Neurological Exam Neurological exam: Present: CN II-XII intact, oriented X3, no focal deficits. Absent: pronater drift, facial droop, speech deficit - Skin Skin exam: Present: dry, intact <Corbin Mancini H - Last Filed: 03/20/17 13:42> Date of Encounter: 03/20/17 - Discharge Diagnosis (1) Renal artery stenosis Status: Chronic Procedures/tests Complete & Pending: Procedures Performed prior 72 hours Category Date Time Status CL Peripheral Angiography [CL] Routine Risk Control Manager 03/20/17 07:06 Ordered Date of admission: 03/12/17 14:48 Primary care physician: Amber Billings CNP Consults: 03/12/17 15:37 Consult to Nephrology [CONS] Routine Consulting Provider: Kidney Zara/DEV/WHIT/LIVAN Reason for Consult: HTN urgency Time Notified: 15:38 Call Completed: Yes 03/13/17 13:47 Consult to Cardiology [CONS] Routine Comment: Consulting Provider: Cardiology [place] Reason for Consult: chest pain with multiple risk factors. No previous [facility] Call Completed: Yes 03/14/17 15:04 Consult to Vascular Surgery [CONS] Routine Consulting Provider: Vascular Surgery Zara Reason for Consult: ALLI with uncontrolled BP Call Completed: Yes 03/15/17 14:05 Consult to Invasive Line Access Team [CONS] Routine Reason for Consult: limited vascular accesss Line Type: [facility] Hospital course: Ms. Gambino is a 61 year old female - Time Spent with Patient Total time spent providing and/or coordinating discharge services: Greater than 30 minutes (40 min) - Constitutional Vitals: Temp Pulse Resp BP Pulse Ox 98.0 F 64 16 170/93 92 03/20/17 10:30 03/20/17 10:30 03/20/17 10:30 03/20/17 10:30 03/20/17 10:30 - Attending Attestation I examined this patient and my medical decision-making was reviewed with the Resident Physician. I agree with the documented findings, disposition and treatment plan as described except to the extent set forth below.
== END 2017-03-20 15:25 | disposition home or self-care (01) | DRG 674 ==
LOC: 3BNU 06:23 → EMEROO 06:23 → 3BNU 10:49 → SUATTDRO 14:48 → 2NNU 03-15 13:14
PROVIDERS: ADMIT Nurse Practitioner Acute Care; ATTEND Internal Medicine